=== PATIENT | female | born 1960 | race Caucasian/White ===

== ENCOUNTER 2019-05-11 11:09 | Inpatient (IN) | payer MEDICARE, OTHER ==
[~2019-05-11] VITALS: Ht 160 cm; Wt 71.7 kg
[2019-05-11] MEDS ORDERED: DEXTROSE 50% WATER 50ML SYRINGE IV ONE (13:20)
[2019-05-11 13:24] LABS: BASOPHILS % 0.5 % (0.0-2.0); EOSINOPHILS % 0.2 % (0.0-5.0); HEMOGLOBIN. 13.5 g/dL (12.0-16.0); LYMPHOCYTES % 13.2 % (20.0-50.0); MEAN CORPUSCULAR HEMOGLOBIN 34.7 pg (28.0-32.0); MEAN CORPUSCULAR VOLUME 105.7 fL (81.0-99.0); MEAN PLATELET VOLUME 7.8 fl (7.4-10.4); MONOCYTES % 7.5 % (2.0-8.0); NEUTROPHILS % 78.6 % (40.0-76.0); PLATELET 369 x1000/uL (130-400); RED BLOOD CELL COUNT 3.88 mill/uL (4.2-5.4); RED CELL DISTRIBUTION WIDTH 18.1 % (11.6-14.6)
[2019-05-11 13:30] LABS: CLARITY URINE CLOUDY (CLEAR); COLOR URINE ORANGE (YELLOW); KETONES URINE NEGATIVE (NEGATIVE); LEUKOCYTE ESTERASE URINE 2+ (NEGATIVE); NITRITE URINE POSITIVE (NEGATIVE); OCCULT BLOOD URINE 3+ (NEGATIVE); PH URINE 8.5 (4.5-8.0); PROTEIN URINE 1+ (NEGATIVE)
[2019-05-11 13:33] LABS: CHLORIDE 104 mEq/L (98-107)
[2019-05-11 13:38] LABS: ETHANOL BLOOD 78 mg/dL
[2019-05-11 13:43] LABS: CREATINE KINASE 632 IU/L (26-192)
[2019-05-11] MEDS ORDERED: SODIUM CHLORIDE 0.9% 1,000 ML IV ONE (13:45)
[2019-05-11] MEDS ORDERED: CEFTRIAXONE 1 G PREMIX 50 ML IV ONE (13:45)
[2019-05-11 14:07] LABS: *AMPHETAMINES SCREEN URINE NEGATIVE (NEGATIVE); *BARBITURATES SCREEN URINE PRESUMTIVE POSITIVE (NEGATIVE); *BENZODIAZEPINES SCREEN URINE NEGATIVE (NEGATIVE); *COCAINE SCREEN URINE NEGATIVE (NEGATIVE)
[2019-05-11 14:08] LABS: CANNABINOID URINE SCREEN NEGATIVE (NEGATIVE); METHADONE URINE SCREEN NEGATIVE (NEGATIVE); OPIATES URINE SCREEN PRESUMTIVE POSITIVE (NEGATIVE); PHENCYCLIDINE URINE SCREEN NEGATIVE (NEGATIVE)
[2019-05-11 17:45] VITALS: BP 113/63
[2019-05-11] MEDS ORDERED: DEXTROSE 50% WATER 50ML SYRINGE IV PRN (19:00)
[2019-05-11 20:00] VITALS: BP 144/73
[2019-05-11] MEDS ORDERED: BLOOD SUGAR DIAGNOSTIC STRIP TEST SCH (21:00)
[2019-05-11] MEDS: BLOOD SUGAR DIAGNOSTIC STRIP TEST SCH (21:00)
[2019-05-11] MEDS: INSULIN LISPRO 100 UNITS/ML SUBCUT SCH (21:00)
[2019-05-11] MEDS ORDERED: ACETAMINOPHEN 325MG TABLET PO PRN (22:30)
[2019-05-12] VITALS: BP 119/74
[2019-05-12] MEDS ORDERED: THIAMINE HCL 100 MG in SODIUM CHLORIDE 0.9% 49 ML IV SCH (03:00)
[2019-05-12] MEDS: ACETAMINOPHEN 500MG TABLET PO PRN ×2 (03:15→09:51)
[2019-05-12 04:00] VITALS: BP 138/83
[2019-05-12] MEDS: BLOOD SUGAR DIAGNOSTIC STRIP TEST SCH ×4 (07:49→20:56)
[2019-05-12] MEDS: INSULIN LISPRO 100 UNITS/ML SUBCUT SCH ×4 (07:50→21:00)
[2019-05-12 08:00] VITALS: BP 136/66
[2019-05-12] MEDS: AMLODIPINE 2.5MG TABLET PO SCH ×2 (09:51→22:08)
[2019-05-12 12:00] VITALS: BP 147/85
[2019-05-12] MEDS ORDERED: MORPHINE SULFATE 2 MG/ML CPJ (NOT FOR IM USE) IV SCH (13:00)
[2019-05-12] MEDS ORDERED: CEFTRIAXONE 1 G PREMIX 50 ML IV SCH (14:00)
[2019-05-12 15:43] LABS: BASOPHILS % 0.5 % (0.0-2.0); EOSINOPHILS % 0.2 % (0.0-5.0); HEMATOCRIT. 35.3 % (36.0-48.0); HEMOGLOBIN. 11.7 g/dL (12.0-16.0); LYMPHOCYTES % 21.2 % (20.0-50.0); MEAN CORPUSCULAR HEMOGLOBIN 34.1 pg (28.0-32.0); MEAN PLATELET VOLUME 8.3 fl (7.4-10.4); NEUTROPHILS % 73.1 % (40.0-76.0); PLATELET 302 x1000/uL (130-400); RED BLOOD CELL COUNT 3.42 mill/uL (4.2-5.4); RED CELL DISTRIBUTION WIDTH 18.1 % (11.6-14.6)
[2019-05-12 16:00] VITALS: BP 145/70
[2019-05-12 16:00] LABS: CHLORIDE 108 mEq/L (98-107)
[2019-05-12 16:08] LABS: CREATINE KINASE 552 IU/L (26-192)
[2019-05-12] MEDS ORDERED: POTASSIUM CHLORIDE 20MEQ TABLET SR PO NR (16:15)
[2019-05-12] MEDS ORDERED: DEXTROSE 50% WATER 50ML SYRINGE IV PRN (16:30)
[2019-05-12] MEDS ORDERED: BLOOD SUGAR DIAGNOSTIC STRIP TEST SCH (17:20)
[2019-05-12] MEDS: CEFTRIAXONE SODIUM 1 G/VIAL IM SCH (18:13)
[2019-05-12] MEDS: HYDROCODONE/ACETAMINOPHEN 5/325MG TABLET PO PRN (18:14)
[2019-05-12 20:00] VITALS: BP 132/81
[2019-05-13] VITALS: BP_SYST 112; BP_SYST 149; BP_DIAS 77; BP_DIAS 82
[2019-05-13 04:00] VITALS: BP 163/53
[2019-05-13 06:47] LABS: CHLORIDE 108 mEq/L (98-107)
[2019-05-13 06:50] LABS: BASOPHILS % 0.8 % (0.0-2.0); EOSINOPHILS % 1.1 % (0.0-5.0); HEMATOCRIT. 34.5 % (36.0-48.0); HEMOGLOBIN. 11.6 g/dL (12.0-16.0); LYMPHOCYTES % 35.8 % (20.0-50.0); MEAN CORPUSCULAR HEMOGLOBIN 34.5 pg (28.0-32.0); MEAN CORPUSCULAR VOLUME 102.4 fL (81.0-99.0); MEAN PLATELET VOLUME 8.5 fl (7.4-10.4); MONOCYTES % 9.3 % (2.0-8.0); PLATELET 300 x1000/uL (130-400); RED BLOOD CELL COUNT 3.37 mill/uL (4.2-5.4); RED CELL DISTRIBUTION WIDTH 17.9 % (11.6-14.6)
[2019-05-13] MEDS: BLOOD SUGAR DIAGNOSTIC STRIP TEST SCH ×3 (07:27→17:48)
[2019-05-13] MEDS: INSULIN LISPRO 100 UNITS/ML SUBCUT SCH ×3 (07:50→17:48)
[2019-05-13 08:00] VITALS: BP 148/92
[2019-05-13] MEDS: AMLODIPINE 2.5MG TABLET PO SCH (08:05)
[2019-05-13] MEDS: HYDROCODONE/ACETAMINOPHEN 5/325MG TABLET PO PRN ×2 (08:06→13:49)
[2019-05-13 12:00] VITALS: BP 138/82
[2019-05-13] MEDS ORDERED: ONDANSETRON 4MG ODT PO PRN (12:30)
[2019-05-13 13:55] VITALS: BP 198/82
[2019-05-13] MEDS: CEFTRIAXONE SODIUM 1 G/VIAL IM SCH (16:58)
== END 2019-05-13 18:30 | disposition home or self-care (01) | DRG 689 ==
LOC: ER 12:43 → 6EST 14:59 → ENRESERV 15:14
PROVIDERS: ADMIT Internal Medicine; ATTEND Internal Medicine
DX: N39.0 Urinary tract infection, site not specified (principal); G93.41 Metabolic encephalopathy; E11.649 Type 2 diabetes mellitus with hypoglycemia without coma; D64.9 Anemia, unspecified; E86.0 Dehydration; E83.51 Hypocalcemia; F17.200 Nicotine dependence, unspecified, uncomplicated; G89.4 Chronic pain syndrome; I10 Essential (primary) hypertension; Z91.19 Patient's noncompliance with other medical treatment and regimen; Z88.0 Allergy status to penicillin; Z91.013 Allergy to seafood; Z82.49 Family history of ischemic heart disease and other diseases of the circulatory system; Z79.84 Long term (current) use of oral hypoglycemic drugs
CPT/HCPCS: 36415; 73590; 80048; 80305; 80320; 81003; 82550; 82962; 83036; 84443; 84484; 87077; 87186; 93005; 93970; 96365; 97162; 99285; C1893; J0696; J2270; J3411; J7030; J7040; Q0162; G0480

== ENCOUNTER 2020-02-26 12:05 | Inpatient (IN) | payer BC, OTHER ==
[~2020-02-26] VITALS: Ht 162.6 cm; Wt 68.0 kg
[2020-02-26 13:17] LABS: BASOPHILS % 1.1 % (0.0-2.0); EOSINOPHILS % 1.1 % (0.0-5.0); HEMATOCRIT. 34.7 % (36.0-48.0); HEMOGLOBIN. 11.9 g/dL (12.0-16.0); LYMPHOCYTES % 36.4 % (20.0-50.0); MEAN CORPUSCULAR HEMOGLOBIN 34.5 pg (28.0-32.0); MEAN CORPUSCULAR VOLUME 100.5 fL (81.0-99.0); MEAN PLATELET VOLUME 7.9 fl (7.4-10.4); MONOCYTES % 6.7 % (2.0-8.0); NEUTROPHILS % 54.7 % (40.0-76.0); PLATELET 289 x1000/uL (130-400); RED BLOOD CELL COUNT 3.45 mill/uL (4.2-5.4); RED CELL DISTRIBUTION WIDTH 17.2 % (11.6-14.6)
[2020-02-26 13:25] LABS: CHLORIDE 100 mEq/L (98-107)
[2020-02-26 13:28] LABS: INR 1.1; PARTIAL THROMBOPLASTIN TIME 24.2 sec (23.4-31.0); PROTHROMBIN TIME 11.1 sec (9.6-11.0)
[2020-02-26 15:12] LABS: CLARITY URINE CLEAR (CLEAR); COLOR URINE YELLOW (YELLOW); KETONES URINE NEGATIVE (NEGATIVE); LEUKOCYTE ESTERASE URINE NEGATIVE (NEGATIVE); NITRITE URINE NEGATIVE (NEGATIVE); OCCULT BLOOD URINE NEGATIVE (NEGATIVE); PROTEIN URINE NEGATIVE (NEGATIVE); SPECIFIC GRAVITY URINE 1.015 (1.005-1.030); UROBILINOGEN URINE 0.2 E.U./dL (0.2-1.0)
[2020-02-26] MEDS ORDERED: MORPHINE SULFATE 4 MG/ML CPJ (NOT FOR IM USE) IV ONE (17:30)
[2020-02-26] MEDS ORDERED: OXYC30TA89 MT (21:48)
[2020-02-26] MEDS ORDERED: MORP30TA54 MT (21:48)
[2020-02-26] MEDS ORDERED: BUPR300T52 MT (21:49)
[2020-02-26] MEDS ORDERED: OXYB5TAB17 MT (21:53)
[2020-02-26] MEDS ORDERED: ATEN50TA MT (21:53)
[2020-02-26] MEDS ORDERED: SERT100T PO (21:53)
[2020-02-26] MEDS ORDERED: LEVO25TA2 PO (21:53)
[2020-02-26] MEDS ORDERED: GABA800T97 MT (21:53)
[2020-02-26 22:00] VITALS: BP 182/83
[2020-02-26] MEDS ORDERED: CLONIDINE 0.1MG TABLET PO PRN (22:45)
[2020-02-26] MEDS ORDERED: SODIUM CHLORIDE 0.45% 1,000 ML IV SCH (23:00)
[2020-02-26] MEDS: MORPHINE SULFATE 4 MG/ML CPJ (NOT FOR IM USE) IV PRN (23:18)
[2020-02-27] VITALS: BP 168/76
[2020-02-27] MEDS ORDERED: DEXTROSE 50% WATER 50ML SYRINGE IV PRN (02:15)
[2020-02-27 04:00] VITALS: BP 156/89
[2020-02-27] MEDS: GABAPENTIN 300MG CAPSULE PO SCH ×2 (05:28→13:23)
[2020-02-27] MEDS: MORPHINE SULFATE 4 MG/ML CPJ (NOT FOR IM USE) IV PRN ×3 (05:30→17:01)
[2020-02-27] MEDS: INSULIN LISPRO 100 UNITS/ML SUBCUT SCH ×2 (06:45→13:21)
[2020-02-27] MEDS: BLOOD SUGAR DIAGNOSTIC STRIP TEST SCH ×2 (06:46→12:10)
[2020-02-27 07:06] LABS: HEMATOCRIT. 33.4 % (36.0-48.0); HEMOGLOBIN. 11.5 g/dL (12.0-16.0); MEAN CORPUSCULAR HEMOGLOBIN 34.1 pg (28.0-32.0); MEAN PLATELET VOLUME 8.1 fl (7.4-10.4); PLATELET 247 x1000/uL (130-400); RED BLOOD CELL COUNT 3.37 mill/uL (4.2-5.4); RED CELL DISTRIBUTION WIDTH 17.5 % (11.6-14.6)
[2020-02-27] MEDS ORDERED: PANTOPRAZOLE 40MG DR TABLET PO SCH (07:10)
[2020-02-27] MEDS ORDERED: LEVOTHYROXINE SODIUM 25MCG TABLET PO SCH (07:10)
[2020-02-27 07:16] LABS: CHLORIDE 100 mEq/L (98-107)
[2020-02-27 07:28] LABS: LDL CHOLESTEROL 126 mg/dL (5-100)
[2020-02-27 07:29] LABS: HDL CHOLESTEROL 68 mg/dL (40-59)
[2020-02-27 07:31] LABS: T4 FREE 0.99 ng/dL (0.76-1.46)
[2020-02-27] MEDS ORDERED: INSULIN LISPRO 100 UNITS/ML SUBCUT SCH (07:40)
[2020-02-27 07:56] VITALS: BP 167/84
[2020-02-27] MEDS ORDERED: AMLODIPINE 5MG TABLET PO SCH (09:00)
[2020-02-27] MEDS ORDERED: SERTRALINE HCL 100MG TABLET PO SCH (09:00)
[2020-02-27] MEDS ORDERED: ENOXAPARIN 40MG/0.4ML SYR SUBCUT SCH (09:00)
[2020-02-27] MEDS ORDERED: POTASSIUM CHLORIDE 20MEQ TABLET SR PO SCH (10:45)
[2020-02-27] MEDS ORDERED: HYDRALAZINE HCL 50MG TABLET PO ONE (10:45)
[2020-02-27] MEDS ORDERED: HYDRALAZINE HCL 50MG TABLET PO SCH (10:45)
[2020-02-27 11:52] VITALS: BP 157/92
[2020-02-27 13:33] LABS: PLATELET ESTIMATE NORMAL
[2020-02-27] MEDS ORDERED: INSULIN GLARGINE UD 100 UNITS/ML SYR SUBCUT SCH (16:00)
[2020-02-27 17:28] VITALS: BP 150/85
[2020-02-27] MEDS ORDERED: ATORVASTATIN CALCIUM 10MG TABLET PO SCH (21:00)
== END 2020-02-27 17:50 | disposition home or self-care (01) | DRG 556 ==
LOC: ER 12:05 → 8WST 17:31 → ENRESERV 20:24 → 8WST 02-27 01:28
PROVIDERS: ADMIT Internal Medicine; ATTEND Internal Medicine
DX: M25.552 Pain in left hip (principal); D64.9 Anemia, unspecified; E11.65 Type 2 diabetes mellitus with hyperglycemia; E78.5 Hyperlipidemia, unspecified; E87.6 Hypokalemia; F10.129 Alcohol abuse with intoxication, unspecified; W03.XXXA Other fall on same level due to collision with another person, initial encounter; M54.9 Dorsalgia, unspecified; G89.29 Other chronic pain; I10 Essential (primary) hypertension; Z79.890 Hormone replacement therapy; Z79.899 Other long term (current) drug therapy; Z87.891 Personal history of nicotine dependence; Y93.89 Activity, other specified; Y92.89 Other specified places as the place of occurrence of the external cause; Y99.8 Other external cause status; Z88.0 Allergy status to penicillin; Z91.013 Allergy to seafood
CPT/HCPCS: 36415; 71045; 72170; 73552; 80053; 80061; 81003; 82962; 83036; 84439; 84443; 85025; 86850; 86900; 93005; 97162; 99285; J1650; J1815; J2270

== ENCOUNTER 2022-01-29 15:32 | Inpatient (IN) | payer BC, OTHER ==
[2022-01-29] VITALS (24 sets, daily range): BP systolic 47–197; BP diastolic 31–129
[~2022-01-29] VITALS: Ht 157.5 cm; Wt 49.5 kg
[~2022-01-29 15:32] MED LIST: ATEN50TA MT; BUPR300T52 MT; GABA800T97 MT; LEVO25TA2 PO; MORP30TA54 MT; OXYB5TAB17 MT; OXYC-582 MT; SERT100T PO; SUCCINYLCHOLINE CHLORIDE 200MG/10ML IV ONE
[2022-01-29] MEDS ORDERED: SODIUM CHLORIDE 0.9% 1,000 ML IV ONE (16:00)
[2022-01-29 16:17] LABS: CHLORIDE 102 mEq/L (98-107)
[2022-01-29 16:22] LABS: BASOPHILS % 0.3 % (0.0-2.0); HEMATOCRIT. 36.5 % (36.0-48.0); HEMOGLOBIN. 12.2 g/dL (12.0-16.0); LYMPHOCYTES % 28.4 % (20.0-50.0); MEAN CORPUSCULAR HEMOGLOBIN 34.1 pg (28.0-32.0); MEAN CORPUSCULAR VOLUME 101.5 fL (81.0-99.0); MEAN PLATELET VOLUME 7.9 fl (7.4-10.4); MONOCYTES % 3.1 % (2.0-8.0); NEUTROPHILS % 68.2 % (40.0-76.0); PLATELET 609 x1000/uL (130-400); RED BLOOD CELL COUNT 3.59 mill/uL (4.2-5.4); RED CELL DISTRIBUTION WIDTH 16.7 % (11.6-14.6)
[2022-01-29 16:36] LABS: CREATINE KINASE 65 IU/L (26-192); ETHANOL BLOOD < 10 mg/dL
[2022-01-29] MEDS ORDERED: [UNRECOGNIZED DRUG - OTHER] IV ONE (16:45)
[2022-01-29] MEDS ORDERED: NOREPINEPHRINE 8 MG in DEXT 5% WATER 242 ML IV ONE (16:45)
[2022-01-29] MEDS ORDERED: NOREPINEPHRINE 8MG/250ML PMX 242 ML IV NR (16:45)
[2022-01-29] MEDS ORDERED: MIDAZOLAM HCL 100 MG in DEXT 5% WATER 80 ML IV ONE (16:45)
[2022-01-29] MEDS ORDERED: MIDAZOLAM 100MG/100ML PMX 80 ML IV NR (16:45)
[2022-01-29] MEDS ORDERED: NOREPINEPHRINE IV ONE (16:45)
[2022-01-29] MEDS ORDERED: MIDAZOLAM 100MG/100ML PMX 100 ML IV NR (16:46)
[2022-01-29 16:52] LABS: BG BASE EXCESS -0.2 mmol/L (-2.0-2.0); BG DEOXYHEMOGLOBIN 0.5 % (0.0-5.0); BG FRACTION INSPIRED OXYGEN 100; BG HCO3 ACT 19.6 mmol/L (22.0-26.0); BG METHEMOGLOBIN 0.3 % (0.0-1.5); BG OXYGEN SATURATION 99.5 % (92.0-98.5); BG OXYHEMOGLOBIN 99.2 % (94.0-97.0); BG PCO2 20.7 mmHg (35.0-45.0); BG PH 7.594 (7.350-7.450); BG PO2 432.4 mmHg (75.0-100.0); BG SAMPLE SITE RIGHT BRACHIAL; BG TOTAL HEMOGLOBIN 12.5 g/dL (12.0-18.0); BG VENT MODE MASK - NRB
[2022-01-29] MEDS ORDERED: NOREPINEPHRINE 8MG/250ML PMX 250 ML IV NR (17:00)
[2022-01-29] MEDS ORDERED: PANTOPRAZOLE 80 MG in SODIUM CHLORIDE 0.9% 100 ML IV STA (17:04)
[2022-01-29] MEDS ORDERED: PANTOPRAZOLE SODIUM 40 MG/VIAL IV STA (17:04)
[2022-01-29 17:13] LABS: BG BASE EXCESS -6.8 mmol/L (-2.0-2.0); BG CARBOXYHEMOGLOBIN 0.3 % (0.5-1.5); BG DEOXYHEMOGLOBIN 2.5 % (0.0-5.0); BG FRACTION INSPIRED OXYGEN 30; BG HCO3 ACT 15.8 mmol/L (22.0-26.0); BG METHEMOGLOBIN 0.1 % (0.0-1.5); BG OXYGEN SATURATION 97.5 % (92.0-98.5); BG OXYHEMOGLOBIN 97.1 % (94.0-97.0); BG PCO2 24.3 mmHg (35.0-45.0); BG SAMPLE SITE RIGHT RADIAL; BG TOTAL HEMOGLOBIN 12.6 g/dL (12.0-18.0); BG VENT MODE VENT - AC
[2022-01-29 18:06] LABS: INR 1.1; PROTHROMBIN TIME 11.4 sec (9.6-11.0)
[2022-01-29] MEDS ORDERED: POTASSIUM CHLORIDE INJ 40 MEQ in DEXT 5% WATER 250 ML IV ONE (19:45)
[2022-01-29] MEDS ORDERED: SODIUM CHLORIDE 0.9% 500 ML IV ONE (19:45)
[2022-01-29] MEDS: KCL 20MEQ/100ML X 2 FOR TOTAL KCL 40MEQ/200ML IV SCH (20:30)
[2022-01-29] MEDS ORDERED: MIDAZOLAM HCL 100 MG in SODIUM CHLORIDE 0.9% 80 ML IV PRN (22:45)
[2022-01-29] MEDS ORDERED: MIDAZOLAM 100MG/100ML PREMIX IV PRN (23:15)
[2022-01-29] MEDS: NOREPINEPHRINE 8 MG in DEXT 5% WATER 242 ML IV PRN (23:37)
[2022-01-30] VITALS (117 sets, daily range): BP systolic 65–169; BP diastolic 37–101
[2022-01-30] MEDS: DEXT 5%/0.45% NACL KCL 20MEQ/L 1,000 ML IV SCH ×2 (00:14→09:35)
[2022-01-30] MEDS: KCL 20MEQ/100ML X 2 FOR TOTAL KCL 40MEQ/200ML IV SCH (00:16)
[2022-01-30] MEDS: CEFEPIME 1,000 MG in DEXTROSE 5% WATER 50 ML IV SCH ×2 (03:19→13:54)
[2022-01-30 04:13] LABS: CHLORIDE 106 mEq/L (98-107)
[2022-01-30] MEDS ORDERED: PIPERACILLIN/TAZOBACTAM 3.375 G in DEXTROSE 5% WATER 50 ML IV SCH (06:00)
[2022-01-30 06:13] LABS: BASOPHILS % 0.2 % (0.0-2.0); HEMATOCRIT. 34.1 % (36.0-48.0); HEMOGLOBIN. 11.3 g/dL (12.0-16.0); LYMPHOCYTES % 10.3 % (20.0-50.0); MEAN CORPUSCULAR VOLUME 102.7 fL (81.0-99.0); MEAN PLATELET VOLUME 7.4 fl (7.4-10.4); MONOCYTES % 4.2 % (2.0-8.0); NEUTROPHILS % 85.3 % (40.0-76.0); PLATELET 644 x1000/uL (130-400); RED BLOOD CELL COUNT 3.32 mill/uL (4.2-5.4); RED CELL DISTRIBUTION WIDTH 16.5 % (11.6-14.6)
[2022-01-30 06:22] LABS: CHLORIDE 107 mEq/L (98-107)
[2022-01-30] MEDS: NOREPINEPHRINE 8 MG in DEXT 5% WATER 242 ML IV PRN ×2 (06:39→16:21)
[2022-01-30] MEDS: PANTOPRAZOLE SODIUM 40 MG/VIAL IV SCH (09:35)
[2022-01-30 10:06] LABS: BG BASE EXCESS -2.9 mmol/L (-2.0-2.0); BG CARBOXYHEMOGLOBIN 0.3 % (0.5-1.5); BG DEOXYHEMOGLOBIN 1.4 % (0.0-5.0); BG FRACTION INSPIRED OXYGEN 30; BG HCO3 ACT 17.8 mmol/L (22.0-26.0); BG METHEMOGLOBIN 0.1 % (0.0-1.5); BG OXYGEN SATURATION 98.6 % (92.0-98.5); BG OXYHEMOGLOBIN 98.2 % (94.0-97.0); BG PH 7.546 (7.350-7.450); BG PO2 142.1 mmHg (75.0-100.0); BG SAMPLE SITE RIGHT RADIAL; BG TOTAL HEMOGLOBIN 11.4 g/dL (12.0-18.0); BG VENT MODE VENT - AC
[2022-01-30] MEDS: SODIUM CHLORIDE 0.45% 1,000 ML IV SCH ×2 (11:01→22:07)
[2022-01-30] MEDS ORDERED: FENTANYL 2500MCG/250ML PMX 250 ML IV PRN (12:15)
[2022-01-30] MEDS: METRONIDAZOLE 500 MG PREMIX 100 ML IV SCH ×2 (12:20→22:08)
[2022-01-30 12:31] LABS: CLARITY URINE CLEAR (CLEAR); COLOR URINE YELLOW (YELLOW); KETONES URINE 1+ (NEGATIVE); LEUKOCYTE ESTERASE URINE NEGATIVE (NEGATIVE); NITRITE URINE NEGATIVE (NEGATIVE); OCCULT BLOOD URINE 2+ (NEGATIVE); PH URINE 5.5 (4.5-8.0); PROTEIN URINE 1+ (NEGATIVE); SPECIFIC GRAVITY URINE 1.014 (1.005-1.030); UROBILINOGEN URINE 0.2 E.U./dL (0.2-1.0)
[2022-01-30] MEDS: ENOXAPARIN 30MG/0.3ML SYR SUBCUT SCH (16:21)
[2022-01-30 16:25] LABS: CHLORIDE 109 mEq/L (98-107)
[2022-01-30 16:32] LABS: BETA HYDROXYBUTYRATE 0.2 mMol/L (0.0-0.3); CREATINE KINASE 81 IU/L (26-192)
[2022-01-30] MEDS ORDERED: MAGNESIUM 2 G PREMIX 50 ML IV NR (19:00)
[2022-01-31] VITALS (71 sets, daily range): BP systolic 75–159; BP diastolic 26–113
[2022-01-31] MEDS: CEFEPIME 1,000 MG in DEXTROSE 5% WATER 50 ML IV SCH ×2 (02:38→13:44)
[2022-01-31] MEDS ORDERED: DEXTROSE 50% WATER 50ML SYRINGE IV PRN (05:30)
[2022-01-31 05:55] LABS: BASOPHILS % 0.6 % (0.0-2.0); HEMATOCRIT. 29.7 % (36.0-48.0); HEMOGLOBIN. 10.1 g/dL (12.0-16.0); LYMPHOCYTES % 14.3 % (20.0-50.0); MEAN CORPUSCULAR HEMOGLOBIN 34.8 pg (28.0-32.0); MEAN CORPUSCULAR VOLUME 102.6 fL (81.0-99.0); MEAN PLATELET VOLUME 7.4 fl (7.4-10.4); MONOCYTES % 3.1 % (2.0-8.0); PLATELET 372 x1000/uL (130-400)
[2022-01-31] MEDS: METRONIDAZOLE 500 MG PREMIX 100 ML IV SCH ×3 (06:27→22:21)
[2022-01-31] MEDS: INSULIN LISPRO 100 UNITS/ML SUBCUT SCH ×3 (06:28→18:00)
[2022-01-31] MEDS: SODIUM CHLORIDE 0.45% 1,000 ML IV SCH ×2 (06:29→18:15)
[2022-01-31] MEDS: BLOOD SUGAR DIAGNOSTIC STRIP TEST SCH ×3 (06:29→18:16)
[2022-01-31 08:04] LABS: BG BASE EXCESS -1.3 mmol/L (-2.0-2.0); BG CARBOXYHEMOGLOBIN 0.3 % (0.5-1.5); BG DEOXYHEMOGLOBIN 2.2 % (0.0-5.0); BG FRACTION INSPIRED OXYGEN 30; BG HCO3 ACT 20.4 mmol/L (22.0-26.0); BG METHEMOGLOBIN 0.3 % (0.0-1.5); BG OXYGEN SATURATION 97.8 % (92.0-98.5); BG OXYHEMOGLOBIN 97.2 % (94.0-97.0); BG PH 7.529 (7.350-7.450); BG SAMPLE SITE RIGHT RADIAL; BG TOTAL HEMOGLOBIN 10.3 g/dL (12.0-18.0); BG VENT MODE VENT - AC
[2022-01-31] MEDS ORDERED: POTASSIUM CHLORIDE 20MEQ/PACKET PO NR (08:15)
[2022-01-31] MEDS: PANTOPRAZOLE SODIUM 40 MG/VIAL IV SCH (08:35)
[2022-01-31 14:19] LABS: BG BASE EXCESS -3.4 mmol/L (-2.0-2.0); BG CARBOXYHEMOGLOBIN 0.2 % (0.5-1.5); BG DEOXYHEMOGLOBIN 1.5 % (0.0-5.0); BG FRACTION INSPIRED OXYGEN 30; BG METHEMOGLOBIN 0.3 % (0.0-1.5); BG OXYGEN SATURATION 98.5 % (92.0-98.5); BG PCO2 22.3 mmHg (35.0-45.0); BG PH 7.524 (7.350-7.450); BG PO2 145.8 mmHg (75.0-100.0); BG SAMPLE SITE RIGHT RADIAL; BG TOTAL HEMOGLOBIN 10.6 g/dL (12.0-18.0); BG VENT MODE VENT - CPAP
[2022-01-31 14:58] LABS: *AMPHETAMINES SCREEN URINE NEGATIVE (NEGATIVE); *BARBITURATES SCREEN URINE PRESUMTIVE POSITIVE (NEGATIVE); *BENZODIAZEPINES SCREEN URINE PRESUMTIVE POSITIVE (NEGATIVE); *COCAINE SCREEN URINE NEGATIVE (NEGATIVE); CANNABINOID URINE SCREEN NEGATIVE (NEGATIVE); METHADONE URINE SCREEN NEGATIVE (NEGATIVE); OPIATES URINE SCREEN PRESUMTIVE POSITIVE (NEGATIVE); PHENCYCLIDINE URINE SCREEN NEGATIVE (NEGATIVE)
[2022-01-31] MEDS: ENOXAPARIN 30MG/0.3ML SYR SUBCUT SCH (18:15)
[2022-01-31] MEDS ORDERED: NALOXONE HCL 0.4MG/ML VIAL IV PRN (18:30)
[2022-01-31] MEDS: TRAMADOL 50MG TABLET PO PRN (18:39)
[2022-02-01] VITALS (40 sets, daily range): BP systolic 101–159; BP diastolic 33–105
[2022-02-01] MEDS: TRAMADOL 50MG TABLET PO PRN ×2 (00:08→06:48)
[2022-02-01] MEDS: SODIUM CHLORIDE 0.45% 1,000 ML IV SCH ×2 (02:38→11:26)
[2022-02-01] MEDS: CEFEPIME 1,000 MG in DEXTROSE 5% WATER 50 ML IV SCH ×2 (02:38→13:36)
[2022-02-01 05:37] LABS: BASOPHILS % 0.9 % (0.0-2.0); EOSINOPHILS % 0.4 % (0.0-5.0); HEMATOCRIT. 26.8 % (36.0-48.0); HEMOGLOBIN. 9.2 g/dL (12.0-16.0); LYMPHOCYTES % 18.8 % (20.0-50.0); MEAN CORPUSCULAR VOLUME 102.4 fL (81.0-99.0); MEAN PLATELET VOLUME 7.8 fl (7.4-10.4); MONOCYTES % 4.8 % (2.0-8.0); NEUTROPHILS % 75.1 % (40.0-76.0); PLATELET 264 x1000/uL (130-400); RED BLOOD CELL COUNT 2.62 mill/uL (4.2-5.4); RED CELL DISTRIBUTION WIDTH 15.9 % (11.6-14.6)
[2022-02-01 05:48] LABS: CHLORIDE 109 mEq/L (98-107)
[2022-02-01] MEDS: METRONIDAZOLE 500 MG PREMIX 100 ML IV SCH ×3 (06:53→22:04)
[2022-02-01] MEDS ORDERED: MAGNESIUM 2 G PREMIX 50 ML IV NR (07:30)
[2022-02-01] MEDS ORDERED: SERTRALINE HCL 50MG TABLET PO SCH (09:00)
[2022-02-01] MEDS ORDERED: POTASSIUM PHOS,M-BASIC-D-BASIC 10 MMOL in DEXT 5% WATER 246.6667 ML IV ONE (09:00)
[2022-02-01] MEDS: PANTOPRAZOLE SODIUM 40 MG/VIAL IV SCH (09:17)
[2022-02-01] MEDS: FOLIC ACID/VITAMIN B COMP W-C TABLET PO SCH (09:17)
[2022-02-01] MEDS: MULTIVITAMINS,THER W-MINERALS TABLET PO SCH (09:17)
[2022-02-01] MEDS: THIAMINE HCL 100MG TABLET PO SCH (09:17)
[2022-02-01] MEDS: HYDROCODONE/ACETAMINOPHEN 10/325MG TABLET PO PRN ×4 (09:18→22:04)
[2022-02-01] MEDS ORDERED: ARIPIPRAZOLE 5MG TABLET PO SCH (13:30)
[2022-02-01] MEDS: ENOXAPARIN 40MG/0.4ML SYR SUBCUT SCH (13:46)
[2022-02-01 15:39] LABS: BG BASE EXCESS -6.5 mmol/L (-2.0-2.0); BG CARBOXYHEMOGLOBIN 0.3 % (0.5-1.5); BG DEOXYHEMOGLOBIN 3.6 % (0.0-5.0); BG HCO3 ACT 15.8 mmol/L (22.0-26.0); BG METHEMOGLOBIN 0.3 % (0.0-1.5); BG OXYGEN SATURATION 96.4 % (92.0-98.5); BG OXYHEMOGLOBIN 95.8 % (94.0-97.0); BG PCO2 22.1 mmHg (35.0-45.0); BG PH 7.471 (7.350-7.450); BG PO2 94.1 mmHg (75.0-100.0); BG SAMPLE SITE RIGHT RADIAL; BG TOTAL HEMOGLOBIN 9.8 g/dL (12.0-18.0); BG VENT MODE ROOM AIR
[2022-02-01] MEDS: SODIUM BICARBONATE 100 MEQ in DEXTROSE 5% WATER 1,000 ML IV SCH (21:40)
[2022-02-02] VITALS (7 sets, daily range): BP systolic 148–158; BP diastolic 65–93
[2022-02-02] MEDS: CEFEPIME 1,000 MG in DEXTROSE 5% WATER 50 ML IV SCH ×2 (01:25→13:29)
[2022-02-02] MEDS: HYDROCODONE/ACETAMINOPHEN 10/325MG TABLET PO PRN ×6 (01:25→23:36)
[2022-02-02] MEDS: METRONIDAZOLE 500 MG PREMIX 100 ML IV SCH ×3 (05:27→21:32)
[2022-02-02] MEDS: THIAMINE HCL 100MG TABLET PO SCH (09:05)
[2022-02-02] MEDS: PANTOPRAZOLE SODIUM 40 MG/VIAL IV SCH (09:05)
[2022-02-02] MEDS: FOLIC ACID/VITAMIN B COMP W-C TABLET PO SCH (09:06)
[2022-02-02] MEDS: MULTIVITAMINS,THER W-MINERALS TABLET PO SCH (09:06)
[2022-02-02] MEDS: SERTRALINE HCL 100MG TABLET PO SCH (09:06)
[2022-02-02] MEDS: ARIPIPRAZOLE 5MG TABLET PO SCH (09:07)
[2022-02-02] MEDS: ENOXAPARIN 40MG/0.4ML SYR SUBCUT SCH (13:29)
[2022-02-02] MEDS ORDERED: CHLORDIAZEPOXIDE 25MG CAPSULE PO SCH (14:00)
[2022-02-02] MEDS: SODIUM BICARBONATE 100 MEQ in DEXTROSE 5% WATER 1,000 ML IV SCH (15:22)
[2022-02-02 16:24] LABS: BASOPHILS % 1.8 % (0.0-2.0); EOSINOPHILS % 0.7 % (0.0-5.0); HEMATOCRIT. 29.7 % (36.0-48.0); HEMOGLOBIN. 9.7 g/dL (12.0-16.0); LYMPHOCYTES % 22.7 % (20.0-50.0); MEAN CORPUSCULAR HEMOGLOBIN 34.1 pg (28.0-32.0); MEAN CORPUSCULAR VOLUME 104.1 fL (81.0-99.0); MEAN PLATELET VOLUME 8.4 fl (7.4-10.4); MONOCYTES % 4.9 % (2.0-8.0); NEUTROPHILS % 69.9 % (40.0-76.0); PLATELET 266 x1000/uL (130-400); RED BLOOD CELL COUNT 2.85 mill/uL (4.2-5.4); RED CELL DISTRIBUTION WIDTH 15.7 % (11.6-14.6)
[2022-02-02 16:39] LABS: CHLORIDE 107 mEq/L (98-107)
[2022-02-02 17:56] LABS: BG BASE EXCESS -3.6 mmol/L (-2.0-2.0); BG CARBOXYHEMOGLOBIN 0.3 % (0.5-1.5); BG DEOXYHEMOGLOBIN 2.4 % (0.0-5.0); BG FRACTION INSPIRED OXYGEN 21; BG METHEMOGLOBIN 0.2 % (0.0-1.5); BG OXYGEN SATURATION 97.6 % (92.0-98.5); BG OXYHEMOGLOBIN 97.1 % (94.0-97.0); BG PCO2 26.7 mmHg (35.0-45.0); BG PH 7.471 (7.350-7.450); BG PO2 103.4 mmHg (75.0-100.0); BG SAMPLE SITE RIGHT RADIAL; BG TOTAL HEMOGLOBIN 10.3 g/dL (12.0-18.0); BG VENT MODE ROOM AIR
[2022-02-03] VITALS: BP 129/80
[2022-02-03] MEDS: SODIUM BICARBONATE 100 MEQ in DEXTROSE 5% WATER 1,000 ML IV SCH ×2 (01:30→14:18)
[2022-02-03] MEDS: CEFEPIME 1,000 MG in DEXTROSE 5% WATER 50 ML IV SCH ×2 (01:30→14:28)
[2022-02-03] MEDS: HYDROCODONE/ACETAMINOPHEN 10/325MG TABLET PO PRN ×4 (03:59→20:03)
[2022-02-03 04:00] VITALS: BP 152/93
[2022-02-03] MEDS: METRONIDAZOLE 500 MG PREMIX 100 ML IV SCH ×3 (04:56→21:02)
[2022-02-03 07:34] LABS: BASOPHILS % 0.9 % (0.0-2.0); EOSINOPHILS % 1.1 % (0.0-5.0); HEMATOCRIT. 29.2 % (36.0-48.0); HEMOGLOBIN. 9.8 g/dL (12.0-16.0); LYMPHOCYTES % 24.8 % (20.0-50.0); MEAN CORPUSCULAR HEMOGLOBIN 34.6 pg (28.0-32.0); MEAN CORPUSCULAR VOLUME 102.8 fL (81.0-99.0); MEAN PLATELET VOLUME 8.5 fl (7.4-10.4); MONOCYTES % 5.6 % (2.0-8.0); NEUTROPHILS % 67.6 % (40.0-76.0); PLATELET 219 x1000/uL (130-400); RED BLOOD CELL COUNT 2.84 mill/uL (4.2-5.4); RED CELL DISTRIBUTION WIDTH 15.7 % (11.6-14.6)
[2022-02-03 07:55] LABS: CHLORIDE 108 mEq/L (98-107)
[2022-02-03 08:00] VITALS: BP 141/93
[2022-02-03] MEDS: SERTRALINE HCL 100MG TABLET PO SCH (08:56)
[2022-02-03] MEDS: PANTOPRAZOLE SODIUM 40 MG/VIAL IV SCH (08:56)
[2022-02-03] MEDS: ARIPIPRAZOLE 5MG TABLET PO SCH (08:57)
[2022-02-03] MEDS: FOLIC ACID/VITAMIN B COMP W-C TABLET PO SCH (08:57)
[2022-02-03] MEDS: MULTIVITAMINS,THER W-MINERALS TABLET PO SCH (08:57)
[2022-02-03] MEDS: THIAMINE HCL 100MG TABLET PO SCH (08:57)
[2022-02-03 12:00] VITALS: BP 137/93
[2022-02-03] MEDS: ENOXAPARIN 40MG/0.4ML SYR SUBCUT SCH (14:24)
[2022-02-03 16:00] VITALS: BP 146/91
[2022-02-03 20:00] VITALS: BP 142/86
[2022-02-04] VITALS: BP 132/68
[2022-02-04] MEDS: HYDROCODONE/ACETAMINOPHEN 10/325MG TABLET PO PRN ×5 (01:26→21:40)
[2022-02-04 04:00] VITALS: BP 134/86
[2022-02-04] MEDS: METRONIDAZOLE 500 MG PREMIX 100 ML IV SCH (05:26)
[2022-02-04 07:57] VITALS: BP 119/81
[2022-02-04] MEDS: FAMOTIDINE 20MG TABLET PO SCH ×2 (09:12→21:04)
[2022-02-04] MEDS: MULTIVITAMINS,THER W-MINERALS TABLET PO SCH (09:12)
[2022-02-04] MEDS: FOLIC ACID/VITAMIN B COMP W-C TABLET PO SCH (09:12)
[2022-02-04] MEDS: THIAMINE HCL 100MG TABLET PO SCH (09:13)
[2022-02-04] MEDS: SERTRALINE HCL 100MG TABLET PO SCH (09:13)
[2022-02-04] MEDS: ARIPIPRAZOLE 5MG TABLET PO SCH (09:14)
[2022-02-04 11:50] VITALS: BP 138/92
[2022-02-04] MEDS: SODIUM BICARBONATE 100 MEQ in DEXTROSE 5% WATER 1,000 ML IV SCH ×4 (12:52→21:05)
[2022-02-04] MEDS: ENOXAPARIN 40MG/0.4ML SYR SUBCUT SCH (12:52)
[2022-02-04 15:45] VITALS: BP 137/87
[2022-02-04 16:26] LABS: BASOPHILS % 1.1 % (0.0-2.0); EOSINOPHILS % 0.9 % (0.0-5.0); HEMATOCRIT. 30.4 % (36.0-48.0); HEMOGLOBIN. 10.2 g/dL (12.0-16.0); LYMPHOCYTES % 24.3 % (20.0-50.0); MEAN CORPUSCULAR HEMOGLOBIN 34.6 pg (28.0-32.0); MEAN CORPUSCULAR VOLUME 102.6 fL (81.0-99.0); MEAN PLATELET VOLUME 9.3 fl (7.4-10.4); MONOCYTES % 5.9 % (2.0-8.0); NEUTROPHILS % 67.8 % (40.0-76.0); PLATELET 240 x1000/uL (130-400); RED BLOOD CELL COUNT 2.96 mill/uL (4.2-5.4); RED CELL DISTRIBUTION WIDTH 16.2 % (11.6-14.6)
[2022-02-04 16:46] LABS: CHLORIDE 103 mEq/L (98-107)
[2022-02-04 20:00] VITALS: BP 142/83
[2022-02-05] VITALS (7 sets, daily range): BP systolic 121–170; BP diastolic 68–100
[2022-02-05] MEDS: HYDROCODONE/ACETAMINOPHEN 10/325MG TABLET PO PRN ×5 (02:15→21:15)
[2022-02-05 07:27] LABS: BASOPHILS % 1.1 % (0.0-2.0); EOSINOPHILS % 1.1 % (0.0-5.0); HEMATOCRIT. 27.4 % (36.0-48.0); HEMOGLOBIN. 9.3 g/dL (12.0-16.0); LYMPHOCYTES % 27.7 % (20.0-50.0); MEAN CORPUSCULAR HEMOGLOBIN 34.8 pg (28.0-32.0); MEAN CORPUSCULAR VOLUME 102.6 fL (81.0-99.0); MEAN PLATELET VOLUME 8.7 fl (7.4-10.4); NEUTROPHILS % 63.1 % (40.0-76.0); PLATELET 211 x1000/uL (130-400); RED BLOOD CELL COUNT 2.67 mill/uL (4.2-5.4); RED CELL DISTRIBUTION WIDTH 16.2 % (11.6-14.6)
[2022-02-05 07:42] LABS: CHLORIDE 102 mEq/L (98-107)
[2022-02-05] MEDS ORDERED: POTASSIUM CHLORIDE 20MEQ TABLET SR PO SCH (09:00)
[2022-02-05] MEDS: ARIPIPRAZOLE 5MG TABLET PO SCH (09:11)
[2022-02-05] MEDS: MULTIVITAMINS,THER W-MINERALS TABLET PO SCH (09:12)
[2022-02-05] MEDS: FOLIC ACID/VITAMIN B COMP W-C TABLET PO SCH (09:12)
[2022-02-05] MEDS: SERTRALINE HCL 100MG TABLET PO SCH (09:12)
[2022-02-05] MEDS: FAMOTIDINE 20MG TABLET PO SCH ×2 (09:12→21:13)
[2022-02-05] MEDS: THIAMINE HCL 100MG TABLET PO SCH (09:12)
[2022-02-05] MEDS: ENOXAPARIN 40MG/0.4ML SYR SUBCUT SCH (15:04)
[2022-02-06] VITALS: BP 161/81
[2022-02-06 04:00] VITALS: BP 160/94
[2022-02-06] MEDS: HYDROCODONE/ACETAMINOPHEN 10/325MG TABLET PO PRN ×4 (04:49→21:01)
[2022-02-06 07:07] LABS: EOSINOPHILS % 1.6 % (0.0-5.0); LYMPHOCYTES % 32.8 % (20.0-50.0); MEAN CORPUSCULAR HEMOGLOBIN 34.9 pg (28.0-32.0); MEAN CORPUSCULAR VOLUME 111.5 fL (81.0-99.0); MEAN PLATELET VOLUME 9.4 fl (7.4-10.4); MONOCYTES % 6.8 % (2.0-8.0); NEUTROPHILS % 57.8 % (40.0-76.0); PLATELET 191 x1000/uL (130-400); RED BLOOD CELL COUNT 2.87 mill/uL (4.2-5.4); RED CELL DISTRIBUTION WIDTH 17.3 % (11.6-14.6)
[2022-02-06 07:39] LABS: CHLORIDE 107 mEq/L (98-107)
[2022-02-06 08:00] VITALS: BP 161/95
[2022-02-06] MEDS: FAMOTIDINE 20MG TABLET PO SCH ×2 (10:00→20:58)
[2022-02-06] MEDS: MULTIVITAMINS,THER W-MINERALS TABLET PO SCH (10:02)
[2022-02-06] MEDS: SERTRALINE HCL 100MG TABLET PO SCH (10:02)
[2022-02-06] MEDS: FOLIC ACID/VITAMIN B COMP W-C TABLET PO SCH (10:03)
[2022-02-06] MEDS: ARIPIPRAZOLE 5MG TABLET PO SCH (10:03)
[2022-02-06] MEDS: THIAMINE HCL 100MG TABLET PO SCH (10:04)
[2022-02-06 10:55] LABS: PLATELET ESTIMATE NORMAL
[2022-02-06] MEDS: CITRIC ACID/SODIUM CITRATE SOLN 15ML UDC PO SCH ×3 (10:58→17:03)
[2022-02-06 12:00] VITALS: BP 157/83
[2022-02-06] MEDS: ENOXAPARIN 40MG/0.4ML SYR SUBCUT SCH (13:51)
[2022-02-06 16:00] VITALS: BP 155/88
[2022-02-06 20:00] VITALS: BP 157/95
[2022-02-07] VITALS: BP 147/94
[2022-02-07] MEDS: HYDROCODONE/ACETAMINOPHEN 10/325MG TABLET PO PRN ×5 (02:05→23:38)
[2022-02-07 04:00] VITALS: BP 157/99
[2022-02-07 07:17] LABS: BASOPHILS % 1.3 % (0.0-2.0); EOSINOPHILS % 1.9 % (0.0-5.0); HEMATOCRIT. 27.5 % (36.0-48.0); HEMOGLOBIN. 9.3 g/dL (12.0-16.0); LYMPHOCYTES % 36.1 % (20.0-50.0); MEAN CORPUSCULAR HEMOGLOBIN 34.6 pg (28.0-32.0); MEAN CORPUSCULAR VOLUME 102.6 fL (81.0-99.0); MEAN PLATELET VOLUME 9.3 fl (7.4-10.4); MONOCYTES % 8.3 % (2.0-8.0); NEUTROPHILS % 52.4 % (40.0-76.0); PLATELET 202 x1000/uL (130-400); RED BLOOD CELL COUNT 2.68 mill/uL (4.2-5.4); RED CELL DISTRIBUTION WIDTH 16.3 % (11.6-14.6)
[2022-02-07 07:57] LABS: CHLORIDE 109 mEq/L (98-107)
[2022-02-07 08:00] VITALS: BP 164/94
[2022-02-07] MEDS: FOLIC ACID/VITAMIN B COMP W-C TABLET PO SCH (08:43)
[2022-02-07] MEDS: SERTRALINE HCL 100MG TABLET PO SCH (08:43)
[2022-02-07] MEDS: THIAMINE HCL 100MG TABLET PO SCH (08:43)
[2022-02-07] MEDS: CITRIC ACID/SODIUM CITRATE SOLN 15ML UDC PO SCH ×3 (08:43→17:43)
[2022-02-07] MEDS: MULTIVITAMINS,THER W-MINERALS TABLET PO SCH (08:43)
[2022-02-07] MEDS: FAMOTIDINE 20MG TABLET PO SCH ×2 (08:43→21:00)
[2022-02-07] MEDS: ARIPIPRAZOLE 5MG TABLET PO SCH (08:43)
[2022-02-07] MEDS ORDERED: POTASSIUM CHLORIDE 20MEQ TABLET SR PO NR (09:30)
[2022-02-07 12:00] VITALS: BP 146/94
[2022-02-07] MEDS: ENOXAPARIN 40MG/0.4ML SYR SUBCUT SCH (14:22)
[2022-02-07 16:00] VITALS: BP 153/95
[2022-02-07 20:00] VITALS: BP 160/100
[2022-02-08] VITALS: BP 149/94
[2022-02-08 04:00] VITALS: BP 158/104
[2022-02-08] MEDS: HYDROCODONE/ACETAMINOPHEN 10/325MG TABLET PO PRN ×4 (06:07→21:02)
[2022-02-08] MEDS: CLONIDINE 0.1MG TABLET PO PRN (06:10)
[2022-02-08 08:03] LABS: BASOPHILS % 1.5 % (0.0-2.0); EOSINOPHILS % 2.2 % (0.0-5.0); HEMATOCRIT. 27.8 % (36.0-48.0); HEMOGLOBIN. 9.6 g/dL (12.0-16.0); LYMPHOCYTES % 32.3 % (20.0-50.0); MEAN CORPUSCULAR HEMOGLOBIN 35.9 pg (28.0-32.0); MEAN CORPUSCULAR VOLUME 103.6 fL (81.0-99.0); MEAN PLATELET VOLUME 9.1 fl (7.4-10.4); MONOCYTES % 9.3 % (2.0-8.0); NEUTROPHILS % 54.7 % (40.0-76.0); PLATELET 214 x1000/uL (130-400); RED BLOOD CELL COUNT 2.68 mill/uL (4.2-5.4); RED CELL DISTRIBUTION WIDTH 16.7 % (11.6-14.6)
[2022-02-08 08:07] LABS: CHLORIDE 110 mEq/L (98-107)
[2022-02-08 08:15] VITALS: BP 122/85
[2022-02-08] MEDS: FAMOTIDINE 20MG TABLET PO SCH ×2 (08:21→21:02)
[2022-02-08] MEDS: ARIPIPRAZOLE 5MG TABLET PO SCH (08:21)
[2022-02-08] MEDS: SERTRALINE HCL 100MG TABLET PO SCH (08:21)
[2022-02-08] MEDS: FOLIC ACID/VITAMIN B COMP W-C TABLET PO SCH (08:21)
[2022-02-08] MEDS: MULTIVITAMINS,THER W-MINERALS TABLET PO SCH (08:22)
[2022-02-08] MEDS: CITRIC ACID/SODIUM CITRATE SOLN 15ML UDC PO SCH (08:22)
[2022-02-08] MEDS: THIAMINE HCL 100MG TABLET PO SCH (08:22)
[2022-02-08 12:00] VITALS: BP 114/74
[2022-02-08] MEDS: ENOXAPARIN 40MG/0.4ML SYR SUBCUT SCH (13:22)
[2022-02-08 16:12] VITALS: BP 146/100
[2022-02-08 19:17] VITALS: BP 145/99
[2022-02-09] VITALS: BP 138/94
[2022-02-09 04:04] VITALS: BP 142/85
[2022-02-09] MEDS: HYDROCODONE/ACETAMINOPHEN 10/325MG TABLET PO PRN ×5 (05:31→23:59)
[2022-02-09 08:00] VITALS: BP 143/99
[2022-02-09] MEDS: FAMOTIDINE 20MG TABLET PO SCH ×2 (08:47→22:02)
[2022-02-09] MEDS: SERTRALINE HCL 100MG TABLET PO SCH (08:47)
[2022-02-09] MEDS: ARIPIPRAZOLE 5MG TABLET PO SCH (08:47)
[2022-02-09 12:00] VITALS: BP 161/95
[2022-02-09] MEDS: ENOXAPARIN 40MG/0.4ML SYR SUBCUT SCH (13:27)
[2022-02-09] MEDS: CLONIDINE 0.1MG TABLET PO PRN (13:34)
[2022-02-09 16:03] VITALS: BP 112/69
[2022-02-09 20:00] VITALS: BP 138/80
[2022-02-10] VITALS: BP 117/90
[2022-02-10 04:00] VITALS: BP 141/80
[2022-02-10] MEDS: HYDROCODONE/ACETAMINOPHEN 10/325MG TABLET PO PRN ×4 (04:29→18:41)
[2022-02-10 08:02] VITALS: BP 146/88
[2022-02-10] MEDS: ARIPIPRAZOLE 5MG TABLET PO SCH (08:40)
[2022-02-10] MEDS: FAMOTIDINE 20MG TABLET PO SCH ×2 (08:40→21:40)
[2022-02-10] MEDS: SERTRALINE HCL 100MG TABLET PO SCH (08:40)
[2022-02-10 12:00] VITALS: BP 147/81
[2022-02-10] MEDS: ENOXAPARIN 40MG/0.4ML SYR SUBCUT SCH (14:00)
[2022-02-10 18:48] VITALS: BP 138/78
[2022-02-10 20:00] VITALS: BP 157/96
[2022-02-11] VITALS: BP 158/96
[2022-02-11] MEDS: HYDROCODONE/ACETAMINOPHEN 10/325MG TABLET PO PRN ×2 (01:06→06:04)
[2022-02-11 04:00] VITALS: BP 135/93
[2022-02-11 08:00] VITALS: BP 146/90
[2022-02-11] MEDS: ARIPIPRAZOLE 5MG TABLET PO SCH (09:14)
[2022-02-11] MEDS: SERTRALINE HCL 100MG TABLET PO SCH (09:14)
[2022-02-11] MEDS: FAMOTIDINE 20MG TABLET PO SCH ×2 (09:14→20:54)
[2022-02-11 12:00] VITALS: BP 124/85
[2022-02-11] MEDS: ENOXAPARIN 40MG/0.4ML SYR SUBCUT SCH (14:39)
[2022-02-11 16:00] VITALS: BP 153/99
[2022-02-11 20:00] VITALS: BP 142/89
[2022-02-11] MEDS ORDERED: HYDROCODONE/ACETAMINOPHEN 10/325MG TABLET PO NR (23:00)
[2022-02-12] VITALS: BP 128/88
[2022-02-12 04:00] VITALS: BP 136/90
[2022-02-12 08:01] VITALS: BP 146/97
[2022-02-12] MEDS: FAMOTIDINE 20MG TABLET PO SCH ×2 (08:43→20:46)
[2022-02-12] MEDS: SERTRALINE HCL 100MG TABLET PO SCH (08:43)
[2022-02-12] MEDS: ARIPIPRAZOLE 5MG TABLET PO SCH (08:43)
[2022-02-12 12:00] VITALS: BP 106/61
[2022-02-12] MEDS: ENOXAPARIN 40MG/0.4ML SYR SUBCUT SCH (13:55)
[2022-02-12] MEDS: HYDROCODONE/ACETAMINOPHEN 10/325MG TABLET PO PRN ×2 (13:58→20:47)
[2022-02-12 20:00] VITALS: BP 102/66
[2022-02-13] VITALS: BP 128/87
[2022-02-13 04:00] VITALS: BP 127/80
[2022-02-13] MEDS: HYDROCODONE/ACETAMINOPHEN 10/325MG TABLET PO PRN ×2 (05:22→20:18)
[2022-02-13 08:00] VITALS: BP 124/79
[2022-02-13] MEDS: FAMOTIDINE 20MG TABLET PO SCH ×2 (08:32→20:17)
[2022-02-13] MEDS: ARIPIPRAZOLE 5MG TABLET PO SCH (08:32)
[2022-02-13] MEDS: SERTRALINE HCL 100MG TABLET PO SCH (08:32)
[2022-02-13 12:04] VITALS: BP 123/87
[2022-02-13] MEDS: ENOXAPARIN 40MG/0.4ML SYR SUBCUT SCH (14:00)
[2022-02-13 16:06] VITALS: BP 131/80
[2022-02-13 16:09] LABS: CHLORIDE 113 mEq/L (98-107)
[2022-02-13 20:00] VITALS: BP 140/75
[2022-02-14] VITALS: BP 154/89
[2022-02-14] MEDS: HYDROCODONE/ACETAMINOPHEN 10/325MG TABLET PO PRN ×4 (02:39→21:48)
[2022-02-14 04:00] VITALS: BP 140/91
[2022-02-14 08:00] VITALS: BP 115/81
[2022-02-14] MEDS: ARIPIPRAZOLE 5MG TABLET PO SCH (09:19)
[2022-02-14] MEDS: FAMOTIDINE 20MG TABLET PO SCH ×2 (09:19→21:48)
[2022-02-14] MEDS: SERTRALINE HCL 100MG TABLET PO SCH (09:19)
[2022-02-14 12:15] VITALS: BP 117/79
[2022-02-14] MEDS: ENOXAPARIN 40MG/0.4ML SYR SUBCUT SCH (13:06)
[2022-02-14 16:15] VITALS: BP 107/82
[2022-02-14 20:00] VITALS: BP 140/87
[2022-02-15] VITALS: BP 127/85
[2022-02-15 04:00] VITALS: BP 149/92
[2022-02-15] MEDS: HYDROCODONE/ACETAMINOPHEN 10/325MG TABLET PO PRN ×4 (05:13→22:38)
[2022-02-15 06:48] LABS: BASOPHILS % 0.8 % (0.0-2.0); EOSINOPHILS % 2.6 % (0.0-5.0); HEMATOCRIT. 27.2 % (36.0-48.0); HEMOGLOBIN. 9.2 g/dL (12.0-16.0); LYMPHOCYTES % 37.9 % (20.0-50.0); MEAN CORPUSCULAR HEMOGLOBIN 35.7 pg (28.0-32.0); MEAN CORPUSCULAR VOLUME 105.2 fL (81.0-99.0); MEAN PLATELET VOLUME 9.3 fl (7.4-10.4); MONOCYTES % 7.5 % (2.0-8.0); NEUTROPHILS % 51.2 % (40.0-76.0); PLATELET 211 x1000/uL (130-400); RED BLOOD CELL COUNT 2.59 mill/uL (4.2-5.4); RED CELL DISTRIBUTION WIDTH 16.3 % (11.6-14.6)
[2022-02-15 06:53] LABS: CHLORIDE 113 mEq/L (98-107)
[2022-02-15 08:00] VITALS: BP 136/94
[2022-02-15] MEDS: ARIPIPRAZOLE 5MG TABLET PO SCH (08:57)
[2022-02-15] MEDS: FAMOTIDINE 20MG TABLET PO SCH ×2 (08:57→21:56)
[2022-02-15] MEDS: SERTRALINE HCL 100MG TABLET PO SCH (08:57)
[2022-02-15 12:00] VITALS: BP 158/89
[2022-02-15] MEDS: ENOXAPARIN 40MG/0.4ML SYR SUBCUT SCH (14:00)
[2022-02-15 20:00] VITALS: BP 160/95
[2022-02-16] VITALS (7 sets, daily range): BP systolic 139–164; BP diastolic 55–103
[2022-02-16] MEDS: HYDROCODONE/ACETAMINOPHEN 10/325MG TABLET PO PRN ×3 (05:06→20:17)
[2022-02-16] MEDS: ARIPIPRAZOLE 5MG TABLET PO SCH (09:19)
[2022-02-16] MEDS: SERTRALINE HCL 100MG TABLET PO SCH (09:20)
[2022-02-16] MEDS: FAMOTIDINE 20MG TABLET PO SCH ×2 (09:20→23:42)
[2022-02-16] MEDS: ENOXAPARIN 40MG/0.4ML SYR SUBCUT SCH (14:00)
[2022-02-16] MEDS ORDERED: SERT100T PO (15:05)
[2022-02-16] MEDS ORDERED: ABIL5 PO (15:05)
[2022-02-17] VITALS: BP 147/85
[2022-02-17] MEDS: HYDROCODONE/ACETAMINOPHEN 10/325MG TABLET PO PRN ×2 (02:33→09:05)
[2022-02-17 04:00] VITALS: BP 153/88
[2022-02-17 08:00] VITALS: BP 87/44
[2022-02-17] MEDS: FAMOTIDINE 20MG TABLET PO SCH (09:04)
[2022-02-17] MEDS: ARIPIPRAZOLE 5MG TABLET PO SCH (09:04)
[2022-02-17] MEDS: SERTRALINE HCL 100MG TABLET PO SCH (09:04)
[2022-02-17 11:59] VITALS: BP 153/91
[2022-02-17] MEDS: ENOXAPARIN 40MG/0.4ML SYR SUBCUT SCH (14:00)
== END 2022-02-17 14:55 | disposition home or self-care (01) | DRG 871 ==
LOC: ER 15:32 → CVICU 19:01 → EDBEDREQ 19:08 → EDBEDREQTM 19:08 → ENRESERV 19:51 → 8WST 02-01 18:42 → 6EST 02-03 12:28
PROVIDERS: ADMIT Internal Medicine; ATTEND Internal Medicine
PROC: 0BH17EZ Insertion of Endotracheal Airway into Trachea, Via Natural or Artificial Opening (ICD-10-PCS; principal; 2022-01-29)
PROC: 5A1945Z Respiratory Ventilation, 24-96 Consecutive Hours (ICD-10-PCS; 2022-01-29)
PROC: 06HY33Z Insertion of Infusion Device into Lower Vein, Percutaneous Approach (ICD-10-PCS; 2022-01-29)
DX: A41.9 Sepsis, unspecified organism (principal); E43 Unspecified severe protein-calorie malnutrition; J96.00 Acute respiratory failure, unspecified whether with hypoxia or hypercapnia; N17.0 Acute kidney failure with tubular necrosis; J69.0 Pneumonitis due to inhalation of food and vomit; N13.30 Unspecified hydronephrosis; E87.2 Acidosis; F33.2 Major depressive disorder, recurrent severe without psychotic features; G93.40 Encephalopathy, unspecified; Z68.1 Body mass index [BMI] 19.9 or less, adult; T51.2X1A Toxic effect of 2-Propanol, accidental (unintentional), initial encounter; Z20.822 Contact with and (suspected) exposure to COVID-19; T52.4X1A Toxic effect of ketones, accidental (unintentional), initial encounter; D64.9 Anemia, unspecified; I10 Essential (primary) hypertension; D75.839 Thrombocytosis, unspecified; E87.6 Hypokalemia; E83.42 Hypomagnesemia; E83.39 Other disorders of phosphorus metabolism; E03.9 Hypothyroidism, unspecified; K76.0 Fatty (change of) liver, not elsewhere classified; F22 Delusional disorders; I95.9 Hypotension, unspecified; R79.89 Other specified abnormal findings of blood chemistry; R91.1 Solitary pulmonary nodule; F10.10 Alcohol abuse, uncomplicated; Y90.9 Presence of alcohol in blood, level not specified; Z88.0 Allergy status to penicillin; Z91.013 Allergy to seafood; Y92.098 Other place in other non-institutional residence as the place of occurrence of the external cause; Z79.899 Other long term (current) drug therapy; Z91.51 Personal history of suicidal behavior
CPT/HCPCS: 36415; 36600; 71045; 74177; 76770; 80048; 80053; 80305; 80307; 80320; 80329; 81003; 82010; 82140; 82375; 82550; 82805; 82962; 83605; 83735; 83930; 84100; 85025; 86850; 86900; 87070; 87426; 93005; 94002; 94003; 94660; 97162; 97166; 97530; 99291; C9113; C9803; J0330; J0692; J1650; J2250; J3010; J3475; J3480; J3490; J7030; J7050; J7060; J7070; U0003; U0005; G0480

== ENCOUNTER 2022-08-26 18:52 | Emergency (ER) | payer OTHER, MEDICARE ==
[~2022-08-26] VITALS: Ht 160 cm; Wt 51.0 kg
[~2022-08-26 18:52] MED LIST changes: +ABIL5 PO; -ATEN50TA MT; -BUPR300T52 MT; -MORP30TA54 MT; -OXYB5TAB17 MT; -SUCCINYLCHOLINE CHLORIDE 200MG/10ML IV ONE
[2022-08-26 19:08] VITALS: BP 135/81
== END 2022-08-26 21:19 | disposition left against medical advice (07) ==
LOC: ER 20:57
DX: Z53.21 Procedure and treatment not carried out due to patient leaving prior to being seen by health care provider (principal)
CPT/HCPCS: 82962

== ENCOUNTER 2023-02-21 03:55 | Emergency (ER) | payer MEDICARE, OTHER ==
[~2023-02-21] VITALS: Ht 165.1 cm; Wt 61.0 kg
[2023-02-21 04:01] VITALS: O2SAT 99
[2023-02-21 04:53] LABS: BASOPHILS % 0.9 % (0.0-2.0); EOSINOPHILS % 1.7 % (0.0-5.0); HEMATOCRIT. 32.6 % (36.0-48.0); HEMOGLOBIN. 10.5 g/dL (12.0-16.0); LYMPHOCYTES % 34.4 % (20.0-50.0); MEAN CORPUSCULAR HEMOGLOBIN 30.7 pg (28.0-32.0); MEAN CORPUSCULAR VOLUME 95.6 fL (81.0-99.0); MEAN PLATELET VOLUME 7.7 fl (7.4-10.4); MONOCYTES % 8.2 % (2.0-8.0); NEUTROPHILS % 54.8 % (40.0-76.0); PLATELET 250 x1000/uL (130-400); RED BLOOD CELL COUNT 3.41 mill/uL (4.2-5.4); RED CELL DISTRIBUTION WIDTH 17.7 % (11.6-14.6)
[2023-02-21 05:02] LABS: CHLORIDE 113 mEq/L (98-107)
[2023-02-21 05:11] LABS: ETHANOL BLOOD 46 mg/dL (-10)
[2023-02-21] MEDS: ARIPIPRAZOLE 5MG TABLET PO SCH ×2 (10:15→16:50)
[2023-02-21] MEDS ORDERED: INSULIN REGULAR (HUMULIN R) 300UNITS/3ML VIAL SUBCUT SCH (15:00)
[2023-02-21 15:03] LABS: CLARITY URINE CLEAR (CLEAR); COLOR URINE YELLOW (YELLOW); KETONES URINE NEGATIVE (NEGATIVE); LEUKOCYTE ESTERASE URINE NEGATIVE (NEGATIVE); NITRITE URINE NEGATIVE (NEGATIVE); OCCULT BLOOD URINE NEGATIVE (NEGATIVE); PH URINE 6.5 (4.5-8.0); PROTEIN URINE NEGATIVE (NEGATIVE); SPECIFIC GRAVITY URINE 1.017 (1.005-1.030); UROBILINOGEN URINE 0.2 E.U./dL (0.2-1.0)
[2023-02-21 15:25] LABS: *AMPHETAMINES SCREEN URINE NEGATIVE (NEGATIVE); *BARBITURATES SCREEN URINE NEGATIVE (NEGATIVE); *BENZODIAZEPINES SCREEN URINE NEGATIVE (NEGATIVE); *COCAINE SCREEN URINE NEGATIVE (NEGATIVE); CANNABINOID URINE SCREEN NEGATIVE (NEGATIVE); METHADONE URINE SCREEN NEGATIVE (NEGATIVE); OPIATES URINE SCREEN NEGATIVE (NEGATIVE); PHENCYCLIDINE URINE SCREEN NEGATIVE (NEGATIVE)
[2023-02-22] MEDS ORDERED: LEVOTHYROXINE SODIUM 75MCG TABLET PO ONE (08:45)
[2023-02-22] MEDS: ATENOLOL 50 MG TABLET PO SCH ×2 (09:00→21:00)
[2023-02-22] MEDS: METFORMIN HCL 500MG TABLET PO SCH ×2 (09:00→11:21)
[2023-02-22] MEDS: ARIPIPRAZOLE 5MG TABLET PO SCH (11:21)
[2023-02-22] MEDS ORDERED: ACETAMINOPHEN 325MG TABLET PO ONE ×2 (12:15→22:00)
[2023-02-22] MEDS ORDERED: DIPHENHYDRAMINE 50MG CAPSULE PO ONE (22:00)
[2023-02-22] MEDS ORDERED: DIPHENHYDRAMINE 25MG CAPSULE PO NR (22:15)
[2023-02-23] MEDS ORDERED: LORAZEPAM 1MG TABLET PO ONE (02:00)
[2023-02-23] MEDS ORDERED: ACETAMINOPHEN 325MG TABLET PO ONE ×2 (05:30→15:15)
[2023-02-23] MEDS ORDERED: OMEPRAZOLE 20MG CAPSULE EXTENDED RELEASE PO ONE (05:30)
[2023-02-23] MEDS: METFORMIN HCL 500MG TABLET PO SCH ×2 (08:54→17:00)
[2023-02-23] MEDS: ATENOLOL 50 MG TABLET PO SCH ×2 (09:00→21:00)
[2023-02-23] MEDS ORDERED: IBUPROFEN 400MG TABLET PO ONE (17:15)
[2023-02-23] MEDS ORDERED: FAMOTIDINE 20MG TABLET PO ONE (17:30)
[2023-02-23] MEDS ORDERED: CLONIDINE 0.1MG TABLET PO ONE (23:15)
[2023-02-23 23:17] VITALS: BP 158/90; PULSE 86; RESP 18; TEMP 98
== END 2023-02-23 23:37 ==
LOC: ER 03:55
DX: R45.851 Suicidal ideations (principal); I10 Essential (primary) hypertension; E11.9 Type 2 diabetes mellitus without complications; Z20.822 Contact with and (suspected) exposure to COVID-19; Z86.39 Personal history of other endocrine, nutritional and metabolic disease; Z88.0 Allergy status to penicillin
CPT/HCPCS: 80053; 80305; 81003; 80307; 80329; 80320; 82962 ×2; 85025; 36415; 96372; 99285; 87426; J1815; C9803; Q0163; G0480

== ENCOUNTER 2023-10-13 19:19 | Inpatient (IN) | payer MEDICARE, OTHER ==
[~2023-10-13] VITALS: Ht 160 cm; Wt 56.7 kg
[~2023-10-13 19:19] MED LIST changes: +LANTUSUD SUBCUT; +LIP40 PO; +LOSA25TA26 PO; +METO25TA6 PO; -OXYC-582 MT
[2023-10-13 19:42] VITALS: O2SAT 100
[2023-10-13 21:28] LABS: BASOPHILS % 0.4 % (0.0-2.0); EOSINOPHILS % 0.1 % (0.0-5.0); HEMATOCRIT. 30.9 % (36.0-48.0); HEMOGLOBIN. 9.4 g/dL (12.0-16.0); LYMPHOCYTES % 7.5 % (20.0-50.0); MEAN CORPUSCULAR HEMOGLOBIN 25.2 pg (28.0-32.0); MEAN CORPUSCULAR HGB CONC 30.5 g/dL (31.0-37.0); MEAN CORPUSCULAR VOLUME 82.6 fL (81.0-99.0); MEAN PLATELET VOLUME 8.5 fl (7.4-10.4); MONOCYTES % 8.1 % (2.0-8.0); NEUTROPHILS % 83.9 % (40.0-76.0); PLATELET 372 x1000/uL (130-400); RED BLOOD CELL COUNT 3.73 mill/uL (4.2-5.4); RED CELL DISTRIBUTION WIDTH 21.1 % (11.6-14.6); WHITE BLOOD COUNT 16.9 x1000/uL (4.5-11.0)
[2023-10-13 21:42] LABS: ALANINE AMINOTRANSFERASE 8 IU/L (10-49); ALBUMIN 5.1 g/dL (3.2-4.8); ASPARTATE AMINOTRANSFERASE 12 IU/L (<34); BILIRUBIN TOTAL 0.4 mg/dL (0.1-1.0); CALCIUM 9.7 mg/dL (8.7-10.4); CARBON DIOXIDE 16 mEq/L (21-32); CHLORIDE 93 mEq/L (98-107); POTASSIUM 4.5 mEq/L (3.5-5.1); PROTEIN TOTAL 9.2 g/dL (6.0-8.3); SODIUM 126 mEq/L (136-145); TROPONIN I HIGH SENSITIVITY 6 ng/L (3.0-34); UREA NITROGEN BLOOD 44 mg/dL (9-23)
[2023-10-13 21:43] LABS: CREATININE 2.4 mg/dL (0.6-1.0)
[2023-10-13 21:51] LABS: GLUCOSE 512 mg/dL (70-105)
[2023-10-13 22:06] LABS: BETA HYDROXYBUTYRATE 4.4 mMol/L (0.0-0.3)
[2023-10-13] MEDS: SODIUM CHLORIDE 0.9% 1000ML BAG (SEPSIS BOLUS) IV ONE (22:09)
[2023-10-13 22:11] LABS: INR 1.1; PARTIAL THROMBOPLASTIN TIME 29.3 sec (23.4-31.0); PROTHROMBIN TIME 11.8 sec (9.6-11.0)
[2023-10-13] MEDS ORDERED: INSULIN REGULAR (DRIP) 100 UNITS in SODIUM CHLORIDE 0.9% 99 ML IV SCH (22:45)
[2023-10-13 23:31] LABS: CALCIUM 8.9 mg/dL (8.7-10.4); CARBON DIOXIDE 18 mEq/L (21-32); CHLORIDE 95 mEq/L (98-107); CREATININE 2.3 mg/dL (0.6-1.0); POTASSIUM 3.8 mEq/L (3.5-5.1); SODIUM 128 mEq/L (136-145); UREA NITROGEN BLOOD 39 mg/dL (9-23)
[2023-10-13] MEDS: INSULIN REGULAR 100U/100ML PMX 99 ML IV SCH (23:52)
[2023-10-13] MEDS: BLOOD SUGAR DIAGNOSTIC STRIP TEST SCH (23:53)
[2023-10-13 23:57] LABS: GLUCOSE 494 mg/dL (70-105)
[2023-10-14] VITALS (51 sets, daily range): BP systolic 113–163; BP diastolic 64–104; PULSE 73–105; RESP 9–24; TEMP 97.8–99.4
[2023-10-14 00:06] LABS: BG BASE EXCESS -8.7 mmol/L (-2.0-2.0); BG CARBOXYHEMOGLOBIN 0.7 % (0.5-1.5); BG HCO3 ACT 14.4 mmol/L (22.0-26.0); BG METHEMOGLOBIN 0.3 % (0.0-1.5); BG PCO2 22.6 mmHg (35.0-45.0); BG PH 7.422 (7.350-7.450); BG PO2 88.5 mmHg (75.0-100.0); BG SAMPLE SITE RIGHT BRACHIAL; BG TOTAL HEMOGLOBIN 8.9 g/dL (12.0-18.0); BG VENT MODE ROOM AIR
[2023-10-14 01:54] LABS: CLARITY URINE CLEAR (CLEAR); COLOR URINE YELLOW (YELLOW); GLUCOSE URINE 3+ (NEGATIVE); KETONES URINE 2+ (NEGATIVE); LEUKOCYTE ESTERASE URINE NEGATIVE (NEGATIVE); NITRITE URINE NEGATIVE (NEGATIVE); OCCULT BLOOD URINE NEGATIVE (NEGATIVE); PH URINE 5.5 (4.5-8.0); PROTEIN URINE TRACE (NEGATIVE); SPECIFIC GRAVITY URINE 1.022 (1.005-1.030); UROBILINOGEN URINE 0.2 E.U./dL (0.2-1.0)
[2023-10-14 02:16] LABS: BACTERIA URINE TRACE; RBC URINE 0-2 /hpf (0-2); SQUAMOUS EPITHELIAL CELL URINE FEW /lpf (RARE/1+); WBC URINE 0-2 /hpf (0-2)
[2023-10-14] MEDS ORDERED: SODIUM PHOSPHATE 15 MMOL in SODIUM CHLORIDE 0.9% 245 ML IV PRN (02:45)
[2023-10-14] MEDS ORDERED: KCL 20MEQ/100ML PREMIX 100 ML IV PRN (02:45)
[2023-10-14] MEDS ORDERED: POTASSIUM CHLORIDE 40 MEQ in SODIUM CHLORIDE 0.9% 230 ML IV PRN (02:45)
[2023-10-14] MEDS ORDERED: MAGNESIUM 2 G PREMIX 100 ML IV PRN (02:45)
[2023-10-14] MEDS ORDERED: DEXTROSE 50% WATER 50ML SYRINGE IV PRN ×2 (02:45→12:15)
[2023-10-14] MEDS: BLOOD SUGAR DIAGNOSTIC STRIP TEST SCH ×2 (02:45→12:34)
[2023-10-14] MEDS ORDERED: SODIUM CHLORIDE 0.9% 1,000 ML IV PRN (02:45)
[2023-10-14] MEDS: HYDROCODONE/ACETAMINOPHEN 5/325MG TABLET PO PRN (03:46)
[2023-10-14] MEDS: KCL 20MEQ/100ML PREMIX 100 ML IV ONE (03:52)
[2023-10-14] MEDS: SODIUM CHLORIDE 0.9% 1,000 ML IV SCH (03:53)
[2023-10-14] MEDS: LEVOFLOXACIN 500MG PREMIX 100 ML IV NR (03:54)
[2023-10-14] MEDS: VANCOMYCIN 1.25GM PMX (XELLIA) 250 ML IV NR (06:54)
[2023-10-14 07:17] LABS: CARBON DIOXIDE 18 mEq/L (21-32); CHLORIDE 106 mEq/L (98-107); GLUCOSE 102 mg/dL (70-105); PHOSPHORUS 1.2 mg/dL (2.5-4.9); POTASSIUM 3.2 mEq/L (3.5-5.1); SODIUM 137 mEq/L (136-145); UREA NITROGEN BLOOD 32 mg/dL (9-23)
[2023-10-14 08:27] LABS: BG BASE EXCESS -5.1 mmol/L (-2.0-2.0); BG CARBOXYHEMOGLOBIN 0.9 % (0.5-1.5); BG DEOXYHEMOGLOBIN 3.2 % (0.0-5.0); BG HCO3 ACT 17.9 mmol/L (22.0-26.0); BG METHEMOGLOBIN 0.3 % (0.0-1.5); BG OXYGEN SATURATION 96.8 % (92.0-98.5); BG OXYHEMOGLOBIN 95.6 % (94.0-97.0); BG PCO2 25.6 mmHg (35.0-45.0); BG PH 7.462 (7.350-7.450); BG PO2 95.4 mmHg (75.0-100.0)
[2023-10-14 08:29] LABS: CREATININE 1.5 mg/dL (0.6-1.0)
[2023-10-14] MEDS: ENOXAPARIN 30MG/0.3ML SYR SUBCUT SCH (08:34)
[2023-10-14] MEDS ORDERED: LIDOCAINE HCL 1% 10 MG/ML 10ML VIAL ONE (09:04)
[2023-10-14] MEDS ORDERED: IPRATROPIUM/ALBUTEROL 0.5-3(2.5)MG/3ML NEB HHN PRN (10:30)
[2023-10-14] MEDS ORDERED: DOCUSATE SODIUM 100MG CAPSULE PO PRN (10:30)
[2023-10-14] MEDS ORDERED: ONDANSETRON HCL 4MG/2ML INJ IV PRN (10:30)
[2023-10-14] MEDS: MAGNESIUM 2 G PREMIX 50 ML IV NR (10:42)
[2023-10-14] MEDS: DEXT 5%/0.9% NACL 1,000 ML IV SCH (10:45)
[2023-10-14 11:25] LABS: CARBON DIOXIDE 19 mEq/L (21-32); CHLORIDE 107 mEq/L (98-107); PHOSPHORUS 1.2 mg/dL (2.5-4.9); POTASSIUM 3.5 mEq/L (3.5-5.1); SODIUM 135 mEq/L (136-145)
[2023-10-14] MEDS: SODIUM BICARBONATE 8.4% 1 MEQ/ML 50ML SYR IV NR (11:28)
[2023-10-14 12:38] LABS: BASOPHILS % 0.5 % (0.0-2.0); EOSINOPHILS % 0.7 % (0.0-5.0); HEMATOCRIT. 23.6 % (36.0-48.0); HEMOGLOBIN. 7.4 g/dL (12.0-16.0); LYMPHOCYTES % 7.6 % (20.0-50.0); MEAN CORPUSCULAR HEMOGLOBIN 25.6 pg (28.0-32.0); MEAN CORPUSCULAR HGB CONC 31.2 g/dL (31.0-37.0); MEAN CORPUSCULAR VOLUME 82.2 fL (81.0-99.0); NEUTROPHILS % 81.2 % (40.0-76.0); PLATELET 288 x1000/uL (130-400); RED BLOOD CELL COUNT 2.88 mill/uL (4.2-5.4); RED CELL DISTRIBUTION WIDTH 20.5 % (11.6-14.6); WHITE BLOOD COUNT 13.4 x1000/uL (4.5-11.0)
[2023-10-14] MEDS: INSULIN LISPRO 100 UNITS/ML SUBCUT SCH (12:45)
[2023-10-14 13:00] LABS: CARBON DIOXIDE 22 mEq/L (21-32); CHLORIDE 105 mEq/L (98-107); PHOSPHORUS 1.2 mg/dL (2.5-4.9); POTASSIUM 3.3 mEq/L (3.5-5.1); SODIUM 137 mEq/L (136-145)
[2023-10-14] MEDS: HYDRALAZINE HCL 25MG TABLET PO SCH (14:21)
[2023-10-14] MEDS ORDERED: NALOXONE HCL 0.4MG/ML VIAL IV PRN (16:00)
[2023-10-14] MEDS ORDERED: VANCOMYCIN 500MG PREMIX 100 ML IV SCH (18:30)
[2023-10-14 21:11] LABS: ALANINE AMINOTRANSFERASE < 7 IU/L (10-49); ALBUMIN 3.8 g/dL (3.2-4.8); ASPARTATE AMINOTRANSFERASE 9 IU/L (<34); BETA HYDROXYBUTYRATE 2.1 mMol/L (0.0-0.3); BILIRUBIN DIRECT 0.1 mg/dL (<=3.0); BILIRUBIN TOTAL 0.3 mg/dL (0.1-1.0); CARBON DIOXIDE 22 mEq/L (21-32); CHLORIDE 103 mEq/L (98-107); IRON 20 ug/dL (50-170); PHOSPHORUS 1.3 mg/dL (2.5-4.9); POTASSIUM 3.1 mEq/L (3.5-5.1); PROTEIN TOTAL 6.4 g/dL (6.0-8.3); SODIUM 135 mEq/L (136-145)
[2023-10-14 21:15] LABS: FERRITIN 32 ng/mL (10-291); FOLIC ACID (FOLATE) SERUM 8.65 ng/mL (>5.38); VITAMIN B12 SERUM 392 pg/mL (211-911)
[2023-10-14 21:20] LABS: TOTAL IRON BINDING CAPACITY > 670 ug/dl (250-425)
[2023-10-14] MEDS: VANCOMYCIN 500MG PREMIX 100 ML IV NR (21:50)
[2023-10-15] VITALS: BP 163/89; PULSE 90; RESP 18; TEMP 98.8
[2023-10-15] MEDS: DEXT 5%/0.45% NACL 1000ML 1,000 ML IV SCH (00:07)
[2023-10-15] MEDS: CLONIDINE 0.1MG TABLET PO PRN (00:47)
[2023-10-15 04:00] VITALS: BP 144/80; PULSE 83; RESP 17; TEMP 98.8
[2023-10-15] MEDS: SODIUM PHOSPHATE 15 MMOL in DEXT 5% WATER 245 ML IV NR (04:50)
[2023-10-15 06:39] LABS: BASOPHILS % 0.2 % (0.0-2.0); EOSINOPHILS % 0.6 % (0.0-5.0); HEMATOCRIT. 24.2 % (36.0-48.0); HEMOGLOBIN. 7.6 g/dL (12.0-16.0); LYMPHOCYTES % 9.4 % (20.0-50.0); MEAN CORPUSCULAR HEMOGLOBIN 25.7 pg (28.0-32.0); MEAN CORPUSCULAR HGB CONC 31.5 g/dL (31.0-37.0); MEAN CORPUSCULAR VOLUME 81.5 fL (81.0-99.0); MEAN PLATELET VOLUME 7.9 fl (7.4-10.4); MONOCYTES % 8.1 % (2.0-8.0); NEUTROPHILS % 81.7 % (40.0-76.0); PLATELET 282 x1000/uL (130-400); RED BLOOD CELL COUNT 2.97 mill/uL (4.2-5.4); RED CELL DISTRIBUTION WIDTH 20.7 % (11.6-14.6); WHITE BLOOD COUNT 13.2 x1000/uL (4.5-11.0)
[2023-10-15 08:17] VITALS: BP 143/72; PULSE 74; RESP 20; TEMP 97.4
[2023-10-15] MEDS: LEVOFLOXACIN 250MG PREMIX 50 ML IV SCH (08:42)
[2023-10-15] MEDS: CYANOCOBALAMIN 1000MCG/ML VIAL IM SCH (09:47)
[2023-10-15] MEDS: IRON SUCROSE COMPLEX 100 MG/5 ML ML IV SCH (09:47)
[2023-10-15 11:25] LABS: ALANINE AMINOTRANSFERASE < 7 IU/L (10-49); ALBUMIN 3.5 g/dL (3.2-4.8); BILIRUBIN DIRECT 0.1 mg/dL (<=3.0); BILIRUBIN TOTAL 0.3 mg/dL (0.1-1.0); CALCIUM 7.5 mg/dL (8.7-10.4); CARBON DIOXIDE 17 mEq/L (21-32); CHLORIDE 104 mEq/L (98-107); CREATININE 0.8 mg/dL (0.6-1.0); GLUCOSE 230 mg/dL (70-105); PROTEIN TOTAL 6.3 g/dL (6.0-8.3); SODIUM 135 mEq/L (136-145); UREA NITROGEN BLOOD 11 mg/dL (9-23)
[2023-10-15] MEDS: VANCOMYCIN 500MG PREMIX 100 ML IV SCH ×2 (11:27→20:31)
[2023-10-15 11:32] LABS: ASPARTATE AMINOTRANSFERASE < 8 IU/L (<34)
[2023-10-15] MEDS: MAGNESIUM 2 G PREMIX 50 ML IV NR (11:32)
[2023-10-15 11:35] LABS: POTASSIUM 2.6 mEq/L (3.5-5.1)
[2023-10-15] MEDS: INSULIN LISPRO 100 UNITS/ML SUBCUT SCH (11:47)
[2023-10-15 12:00] VITALS: BP 147/83; PULSE 87; RESP 15; TEMP 97.9
[2023-10-15] MEDS: POTASSIUM CHLORIDE 20MEQ TABLET SR PO NR ×2 (13:31→17:23)
[2023-10-15] MEDS: HYDRALAZINE HCL 50MG TABLET PO SCH (13:32)
[2023-10-15 16:00] VITALS: BP 150/81; PULSE 104; RESP 21; TEMP 97.8
[2023-10-15 20:00] VITALS: BP 140/78; PULSE 118; RESP 19; TEMP 99
[2023-10-15] MEDS: ACETAMINOPHEN 325MG TABLET PO PRN (23:27)
[2023-10-15] MEDS: DIPHENHYDRAMINE 50MG/ML VIAL IV PRN (23:27)
[2023-10-16] VITALS: BP 114/72; PULSE 107; RESP 18; TEMP 98.3
[2023-10-16 00:30] LABS: POTASSIUM 2.7 mEq/L (3.5-5.1)
[2023-10-16] MEDS: FLUCONAZOLE 200 MG/100ML BAG 200 MG in BAG 1 EACH IV SCH (00:45)
[2023-10-16] MEDS: KCL 20 MEQ/100 ML IV SCH (01:55)
[2023-10-16] MEDS: [UNRECOGNIZED DRUG - OTHER] IV SCH (01:55)
[2023-10-16 04:00] VITALS: BP 125/77; PULSE 96; RESP 18; TEMP 98.5
[2023-10-16 08:00] VITALS: BP 125/79; PULSE 104; RESP 18; TEMP 97.5
[2023-10-16 09:32] LABS: HEMATOCRIT. 24.9 % (36.0-48.0); HEMOGLOBIN. 7.8 g/dL (12.0-16.0); MEAN CORPUSCULAR HEMOGLOBIN 25.8 pg (28.0-32.0); MEAN CORPUSCULAR HGB CONC 31.4 g/dL (31.0-37.0); MEAN CORPUSCULAR VOLUME 82.3 fL (81.0-99.0); PLATELET 331 x1000/uL (130-400); RED BLOOD CELL COUNT 3.03 mill/uL (4.2-5.4); WHITE BLOOD COUNT 15.8 x1000/uL (4.5-11.0)
[2023-10-16] MEDS: LEVOFLOXACIN 750MG PREMIX 150 ML IV SCH (09:37)
[2023-10-16 09:40] LABS: DIFFERENTIAL COMMENT 1
[2023-10-16] MEDS: DEXT 5%/0.45% NACL KCL 40MEQ/L 1,000 ML IV SCH (10:00)
[2023-10-16 10:02] LABS: CALCIUM 9.1 mg/dL (8.7-10.4); CARBON DIOXIDE 17 mEq/L (21-32); CHLORIDE 104 mEq/L (98-107); CREATININE 0.9 mg/dL (0.6-1.0); GLUCOSE 236 mg/dL (70-105); PHOSPHORUS 1.2 mg/dL (2.5-4.9); POTASSIUM 4.5 mEq/L (3.5-5.1); SODIUM 132 mEq/L (136-145); UREA NITROGEN BLOOD 10 mg/dL (9-23)
[2023-10-16 10:48] LABS: ANISOCYTOSIS 2+; PLATELET ESTIMATE NORMAL
[2023-10-16 12:00] VITALS: BP 124/77; PULSE 104; RESP 18; TEMP 98.3
[2023-10-16 16:00] VITALS: BP 140/87; PULSE 107; RESP 18; TEMP 97.7
[2023-10-16] MEDS: ARIPIPRAZOLE 5MG TABLET PO SCH (19:02)
[2023-10-16 20:00] VITALS: BP 148/84; PULSE 120; RESP 19; TEMP 98.5
[2023-10-16] MEDS: THIAMINE HCL 200 MG in SODIUM CHLORIDE 0.9% 98 ML IV SCH (21:49)
[2023-10-16] MEDS: DILTIAZEM HCL 5MG/ML 5ML VIAL IV NR (22:34)
[2023-10-16 23:04] LABS: POTASSIUM 4.2 mEq/L (3.5-5.1)
[2023-10-16 23:12] LABS: TROPONIN I HIGH SENSITIVITY < 4 ng/L (3.0-34)
[2023-10-16] MEDS: MAGNESIUM SULFATE 3 GM in DEXT 5% WATER 100 ML IV NR (23:14)
[2023-10-17] VITALS (76 sets, daily range): BP systolic 64–222; BP diastolic 47–122; PULSE 77–170; RESP 13–57; TEMP 98.2–101.5
[2023-10-17] MEDS ORDERED: MEROPENEM 500MG/50ML 50 ML IV STA (00:06)
[2023-10-17] MEDS: ACETAMINOPHEN 650MG SUPP PR SCH (00:23)
[2023-10-17] MEDS: DILTIAZEM HCL 125 MG in DEXT 5% WATER 100 ML IV PRN (00:34)
[2023-10-17] MEDS ORDERED: VANCOMYCIN 1G PREMIX 200 ML IV SCH (01:00)
[2023-10-17 01:14] LABS: HEMATOCRIT. 27.3 % (36.0-48.0); HEMOGLOBIN. 8.4 g/dL (12.0-16.0); MEAN CORPUSCULAR HEMOGLOBIN 25.4 pg (28.0-32.0); MEAN CORPUSCULAR HGB CONC 30.8 g/dL (31.0-37.0); MEAN CORPUSCULAR VOLUME 82.6 fL (81.0-99.0); MEAN PLATELET VOLUME 8.5 fl (7.4-10.4); PLATELET 360 x1000/uL (130-400); RED BLOOD CELL COUNT 3.31 mill/uL (4.2-5.4); RED CELL DISTRIBUTION WIDTH 21.2 % (11.6-14.6); WHITE BLOOD COUNT 18.8 x1000/uL (4.5-11.0)
[2023-10-17 01:46] LABS: BG CARBOXYHEMOGLOBIN 0.9 % (0.5-1.5); BG DEOXYHEMOGLOBIN 53.3 % (0.0-5.0); BG FRACTION INSPIRED OXYGEN 28; BG HCO3 ACT 17.9 mmol/L (22.0-26.0); BG METHEMOGLOBIN 0.1 % (0.0-1.5); BG OXYGEN SATURATION 46.2 % (92.0-98.5); BG OXYHEMOGLOBIN 45.7 % (94.0-97.0); BG PCO2 29.5 mmHg (35.0-45.0); BG PH 7.401 (7.350-7.450); BG PO2 < 30.3 mmHg (75.0-100.0); BG SAMPLE SITE LEFT BRACHIAL; BG TOTAL HEMOGLOBIN 9.4 g/dL (12.0-18.0); BG VENT MODE NASAL CANNULA
[2023-10-17 01:51] LABS: CALCIUM 9.7 mg/dL (8.7-10.4); CREATININE 1.1 mg/dL (0.6-1.0); POTASSIUM 4.2 mEq/L (3.5-5.1)
[2023-10-17 02:00] LABS: DIFFERENTIAL COMMENT 1
[2023-10-17] MEDS: METOPROLOL TARTRATE 5MG/5ML VIAL IV NR (02:06)
[2023-10-17] MEDS: DILTIAZEM HCL 60MG TABLET PO SCH (02:06)
[2023-10-17] MEDS: MEROPENEM 500MG/50ML 50 ML IV SCH (02:24)
[2023-10-17] MEDS ORDERED: DILTIAZEM HCL 125 MG in DEXT 5% WATER 100 ML IV PRN (03:00)
[2023-10-17 05:57] LABS: HEMATOCRIT. 27.4 % (36.0-48.0); HEMOGLOBIN. 8.4 g/dL (12.0-16.0); MEAN CORPUSCULAR HEMOGLOBIN 25.3 pg (28.0-32.0); MEAN CORPUSCULAR HGB CONC 30.6 g/dL (31.0-37.0); MEAN CORPUSCULAR VOLUME 82.9 fL (81.0-99.0); PLATELET 357 x1000/uL (130-400); RED CELL DISTRIBUTION WIDTH 21.2 % (11.6-14.6); WHITE BLOOD COUNT 24.6 x1000/uL (4.5-11.0)
[2023-10-17 06:03] LABS: BG BASE EXCESS -10.2 mmol/L (-2.0-2.0); BG CARBOXYHEMOGLOBIN 0.3 % (0.5-1.5); BG DEOXYHEMOGLOBIN 2.5 % (0.0-5.0); BG FRACTION INSPIRED OXYGEN 28; BG HCO3 ACT 11.8 mmol/L (22.0-26.0); BG METHEMOGLOBIN 0.3 % (0.0-1.5); BG OXYGEN SATURATION 97.5 % (92.0-98.5); BG OXYHEMOGLOBIN 96.9 % (94.0-97.0); BG PCO2 17.2 mmHg (35.0-45.0); BG PH 7.455 (7.350-7.450); BG PO2 103.2 mmHg (75.0-100.0); BG SAMPLE SITE LEFT RADIAL; BG TOTAL HEMOGLOBIN 9.7 g/dL (12.0-18.0); BG VENT MODE NASAL CANNULA
[2023-10-17 06:31] LABS: CALCIUM 9.6 mg/dL (8.7-10.4); CARBON DIOXIDE 17 mEq/L (21-32); CHLORIDE 103 mEq/L (98-107); CREATININE 1.1 mg/dL (0.6-1.0); PHOSPHORUS 1.3 mg/dL (2.5-4.9); POTASSIUM 4.9 mEq/L (3.5-5.1); SODIUM 130 mEq/L (136-145); UREA NITROGEN BLOOD 11 mg/dL (9-23)
[2023-10-17 06:50] LABS: DIFFERENTIAL COMMENT 1
[2023-10-17 07:15] LABS: PLATELET ESTIMATE NORMAL
[2023-10-17 07:45] LABS: BG PCO2 32.2 mmHg (35.0-45.0); BG SAMPLE SITE RIGHT RADIAL; BG VENT MODE VENT - AC
[2023-10-17 07:46] LABS: BG BASE EXCESS -7.4 mmol/L (-2.0-2.0); BG CARBOXYHEMOGLOBIN 0.4 % (0.5-1.5); BG DEOXYHEMOGLOBIN 1.9 % (0.0-5.0); BG HCO3 ACT 17.4 mmol/L (22.0-26.0); BG METHEMOGLOBIN 0.3 % (0.0-1.5); BG OXYGEN SATURATION 98.1 % (92.0-98.5); BG OXYHEMOGLOBIN 97.4 % (94.0-97.0); BG PO2 136.9 mmHg (75.0-100.0); BG TOTAL HEMOGLOBIN 9.1 g/dL (12.0-18.0)
[2023-10-17 07:47] LABS: GLUCOSE 426 mg/dL (70-105)
[2023-10-17 07:54] LABS: ERYTHROCYTE SEDIMENTATION RATE 107 mm/hr (0-30)
[2023-10-17] MEDS ORDERED: DEXTROSE 50% WATER 50ML SYRINGE IV PRN ×2 (08:15)
[2023-10-17] MEDS: BLOOD SUGAR DIAGNOSTIC STRIP TEST SCH ×3 (08:30→20:00)
[2023-10-17] MEDS: LOSARTAN 25 MG TABLET PO SCH (08:52)
[2023-10-17] MEDS: METOPROLOL TARTRATE 25MG TABLET PO SCH (08:52)
[2023-10-17] MEDS: SERTRALINE HCL 100MG TABLET PO SCH (09:06)
[2023-10-17] MEDS: LEVOTHYROXINE SODIUM 25MCG TABLET PO SCH (09:06)
[2023-10-17] MEDS: ARIPIPRAZOLE 5MG TABLET PO SCH (09:06)
[2023-10-17] MEDS: SODIUM CHLORIDE 0.45% 1,000 ML IV SCH (09:07)
[2023-10-17] MEDS ORDERED: INSULIN GLARGINE 100 UNITS/ML SUBCUT SCH ×2 (10:00)
[2023-10-17] MEDS: INSULIN REGULAR 100U/100ML PMX 100 ML IV SCH (10:27)
[2023-10-17] MEDS: SODIUM PHOSPHATE 20 MMOL in DEXT 5% WATER 243.3333 ML IV NR (10:30)
[2023-10-17] MEDS ORDERED: MIDAZOLAM HCL 100 MG in SODIUM CHLORIDE 0.9% 80 ML IV PRN (11:00)
[2023-10-17] MEDS: FENTANYL CITRATE/PF 2,500 MCG in SODIUM CHLORIDE 0.9% 200 ML IV PRN (11:32)
[2023-10-17 11:57] LABS: PLATELET ESTIMATE NORMAL
[2023-10-17 11:58] LABS: ANISOCYTOSIS 2+
[2023-10-17] MEDS: PANTOPRAZOLE SODIUM 40 MG/VIAL IV SCH (13:01)
[2023-10-17 15:34] LABS: CALCIUM 8.9 mg/dL (8.7-10.4); POTASSIUM 3.6 mEq/L (3.5-5.1)
[2023-10-17] MEDS ORDERED: ACETAMINOPHEN 650MG SUPP PR PRN (15:45)
[2023-10-17] MEDS: KCL 20MEQ/100ML PREMIX 100 ML IV NR (16:00)
[2023-10-17] MEDS: ACETAMINOPHEN 325MG TABLET PO PRN (16:57)
[2023-10-17 19:09] LABS: CALCIUM 8.7 mg/dL (8.7-10.4); CARBON DIOXIDE 19 mEq/L (21-32); CHLORIDE 108 mEq/L (98-107); CREATININE 0.9 mg/dL (0.6-1.0); GLUCOSE 199 mg/dL (70-105); POTASSIUM 4.1 mEq/L (3.5-5.1); SODIUM 138 mEq/L (136-145); UREA NITROGEN BLOOD 12 mg/dL (9-23)
[2023-10-17] MEDS: ATORVASTATIN CALCIUM 40MG TABLET PO SCH (20:30)
[2023-10-17 22:48] LABS: CALCIUM 8.5 mg/dL (8.7-10.4); CARBON DIOXIDE 21 mEq/L (21-32); CHLORIDE 112 mEq/L (98-107); CREATININE 0.7 mg/dL (0.6-1.0); GLUCOSE 149 mg/dL (70-105); PHOSPHORUS 2.8 mg/dL (2.5-4.9); POTASSIUM 3.7 mEq/L (3.5-5.1); SODIUM 141 mEq/L (136-145); UREA NITROGEN BLOOD 10 mg/dL (9-23)
[2023-10-18] VITALS (106 sets, daily range): BP systolic 96–162; BP diastolic 55–93; PULSE 84–137; RESP 0–35; TEMP 98–99.4
[2023-10-18] MEDS: MAGNESIUM 2 G PREMIX 50 ML IV NR (00:10)
[2023-10-18] MEDS: KCL 20MEQ/100ML PREMIX 100 ML IV NR (00:10)
[2023-10-18] MEDS ORDERED: DEXTROSE 50% WATER 50ML SYRINGE IV PRN (01:15)
[2023-10-18] MEDS: INSULIN GLARGINE 100 UNITS/ML SUBCUT NR (01:38)
[2023-10-18] MEDS: SODIUM CHLORIDE 0.9% 1,000 ML IV SCH (01:40)
[2023-10-18] MEDS ORDERED: BLOOD SUGAR DIAGNOSTIC STRIP TEST SCH (06:00)
[2023-10-18] MEDS: BLOOD SUGAR DIAGNOSTIC STRIP TEST SCH (06:16)
[2023-10-18 06:26] LABS: HEMATOCRIT. 24.1 % (36.0-48.0); HEMOGLOBIN. 7.3 g/dL (12.0-16.0); MEAN CORPUSCULAR HEMOGLOBIN 25.4 pg (28.0-32.0); MEAN CORPUSCULAR HGB CONC 30.2 g/dL (31.0-37.0); MEAN CORPUSCULAR VOLUME 84.2 fL (81.0-99.0); MEAN PLATELET VOLUME 7.8 fl (7.4-10.4); PLATELET 282 x1000/uL (130-400); RED BLOOD CELL COUNT 2.86 mill/uL (4.2-5.4); RED CELL DISTRIBUTION WIDTH 20.9 % (11.6-14.6); WHITE BLOOD COUNT 27.6 x1000/uL (4.5-11.0)
[2023-10-18] MEDS: INSULIN LISPRO 100 UNITS/ML SUBCUT SCH (06:32)
[2023-10-18 06:38] LABS: DIFFERENTIAL COMMENT 1
[2023-10-18 07:04] LABS: CARBON DIOXIDE 15 mEq/L (21-32); CHLORIDE 118 mEq/L (98-107); CREATINE KINASE 791 IU/L (34-145); CREATININE 0.8 mg/dL (0.6-1.0); GLUCOSE 291 mg/dL (70-105); PHOSPHORUS 2.4 mg/dL (2.5-4.9); POTASSIUM 4.9 mEq/L (3.5-5.1); SODIUM 146 mEq/L (136-145); UREA NITROGEN BLOOD 11 mg/dL (9-23)
[2023-10-18 09:04] LABS: ANISOCYTOSIS 2+; PLATELET ESTIMATE NORMAL
[2023-10-18] MEDS: SODIUM CHLORIDE 0.45% 1,000 ML IV SCH (09:22)
[2023-10-18] MEDS: CITRIC ACID/SODIUM CITRATE SOLN 30ML UDC PO SCH (09:26)
[2023-10-18] MEDS: INSULIN GLARGINE 100 UNITS/ML SUBCUT SCH (09:28)
[2023-10-18] MEDS ORDERED: INSULIN GLARGINE 100 UNITS/ML SUBCUT SCH (10:00)
[2023-10-18 11:45] LABS: T4 FREE 1.07 ng/dL (0.89-1.76); THYROID STIMULATING HORMONE 0.98 uIU/mL (0.55-4.78)
[2023-10-18] MEDS: LEVOFLOXACIN 750MG PREMIX 150 ML IV SCH (13:03)
[2023-10-18 14:04] LABS: BG BASE EXCESS -11.3 mmol/L (-2.0-2.0); BG CARBOXYHEMOGLOBIN 0.2 % (0.5-1.5); BG DEOXYHEMOGLOBIN 3.6 % (0.0-5.0); BG FRACTION INSPIRED OXYGEN 40; BG HCO3 ACT 12.7 mmol/L (22.0-26.0); BG METHEMOGLOBIN 0.3 % (0.0-1.5); BG OXYGEN SATURATION 96.4 % (92.0-98.5); BG OXYHEMOGLOBIN 95.9 % (94.0-97.0); BG PCO2 22.8 mmHg (35.0-45.0); BG PH 7.364 (7.350-7.450); BG PO2 93.7 mmHg (75.0-100.0); BG SAMPLE SITE RIGHT RADIAL; BG TOTAL HEMOGLOBIN 8.4 g/dL (12.0-18.0); BG VENT MODE VENT - AC
[2023-10-18] MEDS: MEROPENEM 1G/100ML IV SCH (15:25)
[2023-10-18 16:52] LABS: CREATINE KINASE 896 IU/L (34-145)
[2023-10-18] MEDS: POLYVINYL ALCOHOL OPHTH DROPS 15ML BOTHEYE SCH (17:51)
[2023-10-18] MEDS: DILTIAZEM HCL 5MG/ML 5ML VIAL IV NR (18:12)
[2023-10-19] VITALS (111 sets, daily range): BP systolic 54–152; BP diastolic 18–121; PULSE 106–128; RESP 15–32; TEMP 98.9–102.7
[2023-10-19] MEDS: ERYTHROMYCIN BASE 0.5% OPHTH OINT 3.5GM BOTHEYE SCH (00:08)
[2023-10-19 06:26] LABS: ALANINE AMINOTRANSFERASE 12 IU/L (10-49); ALBUMIN 3.4 g/dL (3.2-4.8); ASPARTATE AMINOTRANSFERASE 44 IU/L (<34); BILIRUBIN DIRECT 0.2 mg/dL (<=3.0); BILIRUBIN TOTAL 0.3 mg/dL (0.1-1.0); CALCIUM 8.8 mg/dL (8.7-10.4); CARBON DIOXIDE 18 mEq/L (21-32); CHLORIDE 127 mEq/L (98-107); CREATINE KINASE 808 IU/L (34-145); GLUCOSE 339 mg/dL (70-105); PROTEIN TOTAL 6.6 g/dL (6.0-8.3); UREA NITROGEN BLOOD 14 mg/dL (9-23)
[2023-10-19 06:35] LABS: AMMONIA < 17 uMol/L (<32)
[2023-10-19 06:57] LABS: HEMATOCRIT. 27.7 % (36.0-48.0); HEMOGLOBIN. 8.5 g/dL (12.0-16.0); MEAN CORPUSCULAR HEMOGLOBIN 25.9 pg (28.0-32.0); MEAN CORPUSCULAR HGB CONC 30.7 g/dL (31.0-37.0); MEAN CORPUSCULAR VOLUME 84.4 fL (81.0-99.0); MEAN PLATELET VOLUME 8.2 fl (7.4-10.4); PLATELET 266 x1000/uL (130-400); RED BLOOD CELL COUNT 3.28 mill/uL (4.2-5.4); RED CELL DISTRIBUTION WIDTH 18.8 % (11.6-14.6); WHITE BLOOD COUNT 27.4 x1000/uL (4.5-11.0)
[2023-10-19 07:11] LABS: DIFFERENTIAL COMMENT 1
[2023-10-19 08:10] LABS: CREATININE 1.4 mg/dL (0.6-1.0)
[2023-10-19 08:11] LABS: SODIUM 160 mEq/L (136-145)
[2023-10-19 09:10] LABS: ANTI-NUCLEAR ANTIBODIES DIRECT Negative (Negative)
[2023-10-19] MEDS: INSULIN GLARGINE 100 UNITS/ML SUBCUT SCH (10:14)
[2023-10-19 12:20] LABS: PLATELET ESTIMATE NORMAL
[2023-10-19 12:21] LABS: ANISOCYTOSIS 1+
[2023-10-19] MEDS: METRONIDAZOLE 500MG TABLET PO SCH (15:34)
[2023-10-19] MEDS: MEROPENEM 1G/100ML IV SCH (18:39)
[2023-10-19 21:34] LABS: CALCIUM 7.8 mg/dL (8.7-10.4); POTASSIUM 3.6 mEq/L (3.5-5.1)
[2023-10-20] VITALS (87 sets, daily range): BP systolic 44–135; BP diastolic 13–114; PULSE 76–133; RESP 4–33; TEMP 98.8–101.6
[2023-10-20 05:07] LABS: BASOPHILS % 0.8 % (0.0-2.0); DIFFERENTIAL COMMENT 0; EOSINOPHILS % 0.5 % (0.0-5.0); HEMATOCRIT. 25.8 % (36.0-48.0); HEMOGLOBIN. 7.8 g/dL (12.0-16.0); LYMPHOCYTES % 23.6 % (20.0-50.0); MEAN CORPUSCULAR HEMOGLOBIN 26.2 pg (28.0-32.0); MEAN CORPUSCULAR HGB CONC 30.2 g/dL (31.0-37.0); MEAN CORPUSCULAR VOLUME 86.5 fL (81.0-99.0); MEAN PLATELET VOLUME 8.5 fl (7.4-10.4); MONOCYTES % 4.2 % (2.0-8.0); NEUTROPHILS % 70.9 % (40.0-76.0); PLATELET 196 x1000/uL (130-400); RED BLOOD CELL COUNT 2.98 mill/uL (4.2-5.4); RED CELL DISTRIBUTION WIDTH 19.4 % (11.6-14.6); WHITE BLOOD COUNT 20.8 x1000/uL (4.5-11.0)
[2023-10-20 05:28] LABS: CALCIUM 7.9 mg/dL (8.7-10.4); POTASSIUM 3.7 mEq/L (3.5-5.1)
[2023-10-20 05:51] LABS: CREATININE 2.9 mg/dL (0.6-1.0)
[2023-10-20] MEDS: ENOXAPARIN 40MG/0.4ML SYR SUBCUT SCH (08:30)
[2023-10-20] MEDS: PHENYLEPHRINE 50MG/250ML PMX 250 ML IV PRN (10:00)
[2023-10-20] MEDS ORDERED: IOHEXOL-300 100 ML BOTTLE ONE (10:11)
[2023-10-20] MEDS ORDERED: LEVOFLOXACIN 750MG PREMIX 150 ML IV SCH (11:00)
[2023-10-20] MEDS: POTASSIUM CHLORIDE 20MEQ/PACKET PO NR (11:35)
[2023-10-20 17:06] LABS: ANTI-MYELOPEROXIDASE AB < 0.2 units (0.0-0.9); ANTI-PROTEINASE 3 ABS < 0.2 units (0.0-0.9)
[2023-10-20] MEDS: MEROPENEM 500MG/50ML IV SCH (18:00)
[2023-10-20 18:11] LABS: CALCIUM 7.2 mg/dL (8.7-10.4); CREATININE 3.7 mg/dL (0.6-1.0); POTASSIUM 4.7 mEq/L (3.5-5.1)
[2023-10-20] MEDS: MORPHINE SULFATE 2 MG/ML CPJ (NOT FOR IM USE) IV PRN (18:25)
[2023-10-20] MEDS ORDERED: NALOXONE HCL 0.4MG/ML VIAL IV PRN (18:30)
[2023-10-20] MEDS: DESMOPRESSIN ACETATE 4MCG/ML AMP IV SCH (20:35)
[2023-10-21] MEDS ORDERED: ENOXAPARIN 30MG/0.3ML SYR SUBCUT SCH (09:00)
[2023-10-23 13:11] LABS: ATYPICAL P-ANCA <1:20 titer (Neg:<1:20); CYTOPLASMIC C-ANCA <1:20 titer (Neg:<1:20); PERINUCLEAR P-ANCA <1:20 titer (Neg:<1:20)
== END 2023-10-20 21:59 | DRG 871 ==
LOC: ER 19:19 → CVICU 10-14 00:27 → EDBEDREQTM 10-14 00:34 → EDBEDREQ 10-14 00:34 → EDBEDREQDT 10-14 00:34 → 7EST 10-14 15:43 → CVICU 10-17 00:20 → MICUNO 10-18 16:56
PROVIDERS: ADMIT Internal Medicine; ATTEND Internal Medicine
PROC: 02HV33Z Insertion of Infusion Device into Superior Vena Cava, Percutaneous Approach (ICD-10-PCS; principal; 2023-10-14)
PROC: B548ZZA Ultrasonography of Superior Vena Cava, Guidance (ICD-10-PCS; 2023-10-14)
PROC: 5A1945Z Respiratory Ventilation, 24-96 Consecutive Hours (ICD-10-PCS; 2023-10-17)
PROC: 0BH17EZ Insertion of Endotracheal Airway into Trachea, Via Natural or Artificial Opening (ICD-10-PCS; 2023-10-17)
PROC: 30233N1 Transfusion of Nonautologous Red Blood Cells into Peripheral Vein, Percutaneous Approach (ICD-10-PCS; 2023-10-18)
PROC: 4A00X4Z Measurement of Central Nervous Electrical Activity, External Approach (ICD-10-PCS; 2023-10-18)
DX: A41.9 Sepsis, unspecified organism (principal); E11.10 Type 2 diabetes mellitus with ketoacidosis without coma; J96.90 Respiratory failure, unspecified, unspecified whether with hypoxia or hypercapnia; R65.21 Severe sepsis with septic shock; E87.1 Hypo-osmolality and hyponatremia; G93.40 Encephalopathy, unspecified; N17.9 Acute kidney failure, unspecified; B37.0 Candidal stomatitis; D64.9 Anemia, unspecified; E03.9 Hypothyroidism, unspecified; E83.42 Hypomagnesemia; I10 Essential (primary) hypertension; Z20.822 Contact with and (suspected) exposure to COVID-19; E11.65 Type 2 diabetes mellitus with hyperglycemia; E87.6 Hypokalemia; R62.7 Adult failure to thrive; E83.39 Other disorders of phosphorus metabolism; Z66 Do not resuscitate; E86.9 Volume depletion, unspecified; F32.A Depression, unspecified; G44.209 Tension-type headache, unspecified, not intractable; E86.0 Dehydration; L89.152 Pressure ulcer of sacral region, stage 2; R21 Rash and other nonspecific skin eruption; R74.01 Elevation of levels of liver transaminase levels; K59.00 Constipation, unspecified; R13.10 Dysphagia, unspecified; F17.210 Nicotine dependence, cigarettes, uncomplicated; Z68.22 Body mass index [BMI] 22.0-22.9, adult; Z79.899 Other long term (current) drug therapy; Z98.1 Arthrodesis status; Z88.0 Allergy status to penicillin; Z88.2 Allergy status to sulfonamides
CPT/HCPCS: 31500; 36415; 36573; 36600; 70492; 70551; 71045; 74176; 80048; 80051; 80053; 80076; 80202; 81003; 82010; 82140; 82375; 82550; 82607; 82728; 82746; 82805; 82962; 83036; 83520; 83540; 83550; 83605; 83735; 83880; 83930; 84100; 84132; 84145; 84439; 84443; 84481; 84484; 85025; 85379; 85651; 86038; 86256; 86635; 86850; 86900; 86920; 87070; 87426; 87804; 87899; 92610; 93005; 93306; 94002; 94003; 95816; 99291; C1725; C1769; C9113; J1200; J1450; J1650; J1815; J1956; J2185; J2250; J2270; J2597; J3010; J3370; J3411; J3420; J3475; J3480; J3490; J7030; J7050; J7060; P9016; Q9967